=== PATIENT | female | born 1960 | race Caucasian/White ===

== ENCOUNTER 2018-12-23 00:25 | Inpatient (IN) ==
[2018-12-23] MEDS ORDERED: ZOFRAN IV ONE (01:09)
[2018-12-23] MEDS ORDERED: NS 1,000 ML IV ONE (01:09)
[2018-12-23 01:55] LABS: URINE SOURCE CLEAN CATCH
--- NOTE | 2018-12-23 02:04 | PROVIDER DOCUMENTATION ---
This chart was entered by Anni Martinez Scribe, acting as scribe for Nita Vicente MD. HPI-Abdominal Pain/GI Problem - General Chief Complaint: Abdominal Pain Stated Complaint: STOMACH PAIN Time Seen by Provider: 12/23/18 01:05 Source: patient Allergies/Adverse Reactions: Patient Allergies Allergy/AdvReac Type Severity Reaction Status Date / Time allergy mediation Allergy SWELLING Uncoded 08/15/18 16:11 Home Medications: Home Medication List Medication Instructions Recorded Confirmed Last Taken Type Escitalopram Oxalate [Lexapro] 20 mg PO HS 06/24/15 08/17/17 08/16/17 History Rivaroxaban [Xarelto] 10 mg PO QHS 06/24/15 08/17/17 08/12/17 History ATORVAstatin [Lipitor] 40 mg PO QHS 05/11/16 08/17/17 08/16/17 History Levothyroxine [Synthroid] 100 mcg PO DAILY 05/11/16 08/17/17 08/16/17 History Hydrocodone Bit/Acetaminophen 1 tab PO TID 08/02/16 08/17/17 08/16/17 History [Hydrocodon-Acetaminoph 7.5-325] Gabapentin 200 mg PO TID #0 08/05/16 08/17/17 08/16/17 Rx Ropinirole HCl [Ropinirole ER] 4 mg PO HS 02/16/17 08/17/17 08/16/17 History Ferrous Sulfate 325 mg PO DAILY 03/22/17 08/17/17 08/16/17 History Furosemide [Lasix] 40 mg PO DAILY 03/22/17 08/17/17 08/16/17 History Omeprazole 40 mg PO DAILY 03/22/17 08/17/17 08/16/17 History Spironolactone 0.5 tab PO DAILY 03/22/17 08/17/17 08/16/17 History LISINOpril [Prinivil] 20 mg PO DAILY 08/14/17 08/17/17 08/16/17 History Metformin [Glucophage] 850 mg PO DAILY 08/14/17 08/17/17 08/16/17 History Oxycodone HCl/Acetaminophen 1 each PO Q6H PRN PRN #40 tablet 08/17/17 Unknown Rx [Percocet 5-325 mg Tablet] Ondansetron [Zofran] 4 mg PO Q6H PRN PRN #14 tab 09/08/17 Unknown Rx Sulfamethoxazole/Trimethoprim 1 ea PO BID #14 tab 09/08/17 Unknown Rx [Bactrim Ds Tablet] Tramadol [Ultram] 50 mg PO Q6H PRN PRN #20 tab 09/08/17 Unknown Rx - History of Present Illness-ABD Nature of Presenting Problems: 58yof presents to ED cc abdominal pain around belly button for last 4 hrs and dysuria. Pt denies N,V,C. Pt is asking for something for sleep upon exam. Abdominal Pain Onset Location: reports: periumbilical Pain Radiation: reports: no radiation Quality of Pain: reports: aching Severity in ED: reports: mild Onset/Duration: reports: 4-6 hours ago Timing: reports: still present Activities at Onset: reports: light activity Modifying Factors: improves with: nothing Review of Systems - Adult - REVIEW OF SYSTEMS - ADULT Constitutional: reports: see HPI. denies: chills, fever, fatique Eyes: reports: no symptoms reported Ears, Nose, Mouth & Throat: reports: no symptoms reported Cardiovascular: reports: no symptoms reported Respiratory: reports: no symptoms reported Gastrointestinal: reports: see HPI, abdominal pain. denies: constipation, nausea, vomiting Genitourinary: reports: see HPI, dysuria Musculoskeletal: reports: no symptoms reported Integumentary: reports: no symptoms reported Neurological: reports: no symptoms reported Psychiatric: reports: no symptoms reported Endocrine: reports: no symptoms reported Hematologic/Lymphatic: reports: no symptoms reported Allergic/Immunologic: reports: no symptoms reported All Other Systems: Reviewed and Negative Past History - Adult - PAST MEDICAL HISTORY-ADULT Review of Records: reports: Nursing Assessment Review, Medications Reviewed, Social history reviewed & non-contributory. Major Childhood Illnesses: reports: denies history Cardiovascular: reports: blood clots, CHF, HTN, hyperlipidemia Respiratory: reports: COPD, sleep apnea Gastrointestinal: denies: cancer, Crohn's, colitis, diverticulosis, GERD, GI bleed, hepatitis Obstetrical/Gynecological: reports: denies history Genitourinary: reports: ESRD, kidney disease. denies: kidney stones, chronic UTI's Musculoskeletal: reports: other (restless leg syndrome) Neurological: denies: CVA, stroke deficits, dementia, spinal cord/brain injury Psychiatric: reports: depression Endocrine/Immune: reports: Diabetes (borderline), thyroid disorder Other Conditions: reports: denies history - PRIOR SURGERIES/PROCEDURES Surgical/Procedure History: reports: hysterectomy, hernia repair, other - IMMUNIZATION STATUS Childhood Immunizations: See Nurse Assessment Flu Vaccine: See Nurse Assessment - FAMILY HISTORY Family History: reviewed, not pertinent Physical Exam-General - PHYSICAL EXAM-ADULT Initial Vital Signs Reviewed: Yes - CONSTITUTIONAL General Appearance: appears well, alert, no apparent distress. negative: anxious, combative - EYES Eyes: PERRL/EOMI - RESPIRATORY Respiratory: chest non-tender - CARDIOVASCULAR Cardiovascular: normal peripheral pulses - GASTROINTESTINAL (ABDOMEN) Abdominal Exam: normal bowel sounds, tenderness (periumbilical) - SKIN Integumentary: normal color - PSYCHIATRIC Psych/Mental Status: normal mood/affect, normal thought content, normal thought process, oriented x 3. negative: disoriented x 3, anxious, disheveled, depr essed affect Progress - PLAN OF CARE/RESULTS Progress/Plan/Lab Results: Vital Signs - 8 hr 12/23/18 00:30 Temperature 97.3 F L Pulse Rate 67 Respiratory Rate 16 Blood Pressure 106/71 O2 Sat by Pulse Oximetry 96 Laboratory Results - last 24 hr 12/23/18 01:27 Urine Source CLEAN CATCH Orders Category Date Time Status AMYLASE [CHEM] Stat Lab 12/23/18 01:35 Received CBC WITH ELECTRONIC DIFF [HEME] Stat Lab 12/23/18 01:27 Results COMPREHENSIVE METABOLIC PANEL [CHEM] Stat Lab 12/23/18 01:35 Received LIPASE [CHEM] Stat Lab 12/23/18 01:35 Received URINALYSIS W/POSS RFLX CULT [URINALYSIS] Stat Lab 12/23/18 01:27 Results URINE DRUG SCREEN Stat Lab 12/23/18 01:27 Received 0.9% Sodium Chloride Inj [Ns] 1,000 ml Med 12/23/18 01:09 Active IV 999 mls/hr Ondansetron [Zofran] Med 12/23/18 01:09 Discontinued 4 mg IV NOW ONE CT showing SBO, likely due to adhesions. Spoke to Dr Kc, endodontics dentist for general surgery who stated to admit to hospitalist and he will be consulted. UA weakly + but given rocephin in the ED. UDS + for opiates could try relistor to see if this relieves some contents. Recommends no NGT if patient is not vomiting. Pt is not vomiting so will hold off NGT at this time. Spoke to Dr Langford who accepted pt for admission. Further orders to be placed by their team. Result Diagrams: 12/23/18 01:27 12/23/18 01:27 - CT/MRI 1 CT Study: Abdomen Impression: Abnormal (Smaal bowel obstruction, right renal lesion benign vs malignant.) - CONSULTS/PCP/HOSPITALIST Notification Time Discussed: 03:28 (admit to hosp and he will see as consult, no NGT if patient is not vomiting) Reason/Comments: Dr Kc Consult Disposition: Admit #2 Consult: Dr Langford Time Discussed: 03:34 Consult Disposition: Admit Departure - Departure Date of Disposition Decision: 12/23/18 Time of Disposition Decision: 03:34 DIAGNOSIS: Small bowel obstruction, Renal lesion UTI (urinary tract infection) Qualifiers: Hematuria presence: without hematuria Disposition: ADMITTED INPATIENT 09 Certified Medical Emergency: Emergent Condition: Stable Additional Freetext Instructions: ED Follow Up Instructions: You have been treated by a care provider in the Emergency Department. These i nstructions are being provided to you so you can have an understanding of how to care for yourself upon discharge. Upon discharge from the Emergency Department, you are responsible for making arrangements for follow-up care by a physician of your choice. Take all prescribed medications as directed. Return to the Emergency Department immediately for any new or worsening symptoms. You may call the Physician Referral phone number at [phone] to obtain a list of Physicians who are taking new patients. Referrals and Follow-Ups: Jelani Zee Jr, MD [Primary Care Provider] - - Critical Care Note This patient required my direct & personal management of CC.: No Attestation - Physician/ NADEEM Attestation Patient care was provided by Advanced Practice Provider:: No The physician spent face to face time with patient:: Yes Advanced Practice Provider documentation review:: Supervising physician onsite and consulted in the evaluation and care of this patient. The physician did have a face to face encounter with the patient. This chart was documented by the indicated scribe, (Anni Martinez Scribe) and accurately reflects the services I performed and decisions made by me, Nita Vicente MD, as attested by the provider's signature.
[2018-12-23 02:09] LABS: HEMOGLOBIN 11.5 g/dL (12.0-16.0); RBC 3.96 XMIL (4.2-5.4); WBC 7.43 X1000 (4.8-10.8)
[2018-12-23 02:10] LABS: BASO# 0.03 X1000 (0.0-0.2); BASO% 0.4 % (0.0-0.8); EOS# 0.28 X1000 (0.0-0.7); EOS% 3.8 % (0.0-10.0); HEMATOCRIT 37.3 % (37.0-47.0); LYMPH# 1.87 X1000 (1.2-3.4); LYMPH% 25.2 % (20.5-51.1); MCHC 30.8 g/dL (33-37); MCV 94.2 FL (81-99); MONO# 0.51 X1000 (0.11-0.59); MONO% 6.9 % (1.7-9.3); MPV 10.4 FL (7.4-10.4); NEUT# 4.74 X1000 (1.4-6.5); NEUT% 63.7 % (42.2-75.2); PLT 211 X1000 (130-400); RDW 14.8 % (11.5-14.5)
[2018-12-23 02:12] LABS: BILIRUBIN URINE NEGATIVE (NEGATIVE); BLOOD URINE NEGATIVE (NEGATIVE); COLOR YELLOW; GLUCOSE URINE NEGATIVE (NEGATIVE); KETONE URINE NEGATIVE (NEGATIVE); LEUKOCYTES URINE SMALL (NEGATIVE); NITRITE URINE NEGATIVE (NEGATIVE); PH URINE 5.5; PROTEIN URINE NEGATIVE (NEGATIVE); SP GRAVITY URINE 1.022; TURBIDITY URINE CLEAR (CLEAR); UROBILINOGEN URINE 2 mg/dL (NORMAL)
[2018-12-23 02:13] LABS: UR EPITHELIAL CELLS <10 /HPF (<10); URINE BACTERIA 1+ /HPF; URINE RBC <10 /HPF (<10); URINE WBC <10 /HPF (<10)
[2018-12-23 02:27] LABS: ALB/GLOB RATIO 1.7; ALBUMIN 4.3 g/dL (3.5-5.0); CALCIUM 9.3 mg/dL (8.8-10.2); CREATININE 2.6 mg/dL (0.5-0.9); POTASSIUM 5.3 mmol/L (3.5-5.1); TOTAL BILIRUBIN 0.33 mg/dL (0.20-1.00); TOTAL PROTEIN 6.9 g/dL (6.3-8.3)
[2018-12-23 02:48] LABS: UR AMPHETAMINES QUAL NONE DETECTED (NONE DETECT); UR BARBITUATES QUAL NONE DETECTED (NONE DETECT); UR BENZODIAZEPIN QUAL NONE DETECTED (NONE DETECT); UR CANNABINOIDS QUAL NONE DETECTED (NONE DETECT); UR COCAINE QUAL NONE DETECTED (NONE DETECT); UR METHADONE QUAL NONE DETECTED (NONE DETECT); UR OPIATES QUAL PRESUMPTIVE POSITIVE (NONE DETECT); UR OXYCODONE QUAL NONE DETECTED (NONE DETECT); UR PCP QUAL NONE DETECTED (NONE DETECT)
[2018-12-23] MEDS ORDERED: ROCEPHIN 1 GM in NS 50 ML IV ONE (03:01)
--- NOTE | 2018-12-23 05:15 | HISTORY AND PHYSICAL ---
PRIMARY CARE PHYSICIAN: Dr. Zee. CHIEF COMPLAINT: Abdominal pain x1 day. HISTORY OF PRESENTING ILLNESS: A 58-year-old female with a history of COPD, diabetes mellitus type 2, congestive heart failure, diastolic dysfunction, chronic kidney disease and DVT, who had presented to emergency department with 1-day history of having abdominal pain. She described it as cramping and states that it was not improving. The patient was evaluated in the emergency department. She had imaging done which did show a small bowel obstruction. Due to her presenting symptoms, it was thought that she would need admission for further management. At the time of my examination, patient denied any headache, fever, chills, hemoptysis, melena, weight changes, but complained of abdominal pain and being nauseated. PAST MEDICAL HISTORY: Includes COPD, diabetes mellitus type 2, obstructive sleep apnea, CHF, diastolic dysfunction, chronic kidney disease stage 3, restless legs syndrome and DVT. PAST SURGICAL HISTORY: Hysterectomy, abdominal hernia repair, left detached retinal repair, breast implants. ALLERGIES: [id number] allergy medicines. CURRENT MEDICATIONS: Lipitor 40 mg p.o. at bedtime, Lexapro 20 mg p.o. at bedtime, ferrous sulfate 325 mg p.o. daily, Lasix 40 mg p.o. daily, gabapentin 200 mg p.o. b.i.d., [place] 7.5 one p.o. t.i.d., levothyroxine 100 mcg p.o. daily, lisinopril 20 mg p.o. daily, metformin 850 mg p.o. daily, Xarelto 10 mg p.o. at bedtime, Requip 4 mg p.o. at bedtime. SOCIAL HISTORY: No history of smoking, alcohol or illicit drug use. FAMILY HISTORY: Positive for coronary artery disease in his father. REVIEW OF SYSTEMS: Fourteen point review of systems as listed in HPI. Other systems negative. PHYSICAL EXAMINATION: GENERAL: Cooperative, friendly, obese female. She is resting comfortably now. VITAL SIGNS: Temperature 97.2 degrees, pulse 67, respirations 16, blood pressure 106/71. HEENT: Atraumatic, normocephalic. Extraocular movements intact. PERRLA. NECK: No masses. CHEST: Clear to auscultation. CARDIOVASCULAR: Regular rate and rhythm. ABDOMEN: Soft. Diffuse tenderness. EXTREMITIES: No edema. NEUROLOGIC: She is awake, alert, oriented x3. GENITOURINARY: No bladder distention. SKIN: Warm. LABORATORIES AND STUDIES: WBC 7.43, hemoglobin 11.5, hematocrit 37.2, platelets 211,000. Sodium 145, potassium 5.3, chloride 108, CO2 is 26, BUN is 39, creatinine is 2.6, glucose 98. ASSESSMENT: A 58-year-old female with a history of chronic obstructive pulmonary disease, diabetes mellitus type 2, congestive heart failure, chronic kidney disease, who had presented to emergency department with a 1-day history of having abdominal pain. She was evaluated in the emergency department. She had imaging done which did show small bowel obstruction. Subsequently, she will require admission for further management. 1. Suspected small-bowel obstruction. 2. Diabetes mellitus type 2. 3. Chronic obstructive pulmonary disease. 4. Chronic kidney disease. 5. History of deep venous thrombosis. PLAN: 1. We will admit patient to medical floor with telemetry. 2. We will keep patient NPO. Continue with supportive treatment with IV fluids, antiemetics, pain control. 3. We will consult General Surgery. 4. Monitor blood glucose and put patient on sliding scale insulin regimen. 5. Continue with DuoNebs p.r.n. 6. Monitor renal function. 7. We will hold anticoagulation for now due to possibility of any surgical intervention. 8. The patient, however, had already taken a dose of Xarelto and this will suffice for DVT prophylaxis for now. 9. We will continue to follow, and reassess and make further recommendations based on patient's clinical course. cc: Caleb Langford MD
[2018-12-23] MEDS: ZOFRAN IV PRN ×2 (05:49→08:35)
[2018-12-23] MEDS: MORPHINE IV PRN ×3 (05:50→20:04)
[2018-12-23] MEDS: NS 1,000 ML IV SCH ×3 (05:51→22:37)
[2018-12-23] MEDS: HUMULIN R SUBQ SCH ×4 (06:42→22:13)
--- NOTE | 2018-12-23 07:48 | Diag Imaging Result Doc PS360 ---
EXAM: CT ABDOMEN/PELVIS W/O CONTRAST 12/23/2018 HISTORY: abd pain TECHNIQUE: This exam was performed using automated exposure control, adjustment of mA or kV according to patient size, and/or use of iterative reconstruction technique. COMMENT: The current study is compared with 03/22/2017. There is some platelike opacity and mild pleural thickening in the left base. The nodular opacity present in the left lower lobe at the time the previous study is no longer identifiable. There are granulomata in the liver and spleen. There is no evidence of nephrolithiasis or hydronephrosis. There is an exophytic nodular lesion arising from the lower pole of the left kidney measuring up to 14 mm in diameter. This appears to have a CT density of over 17 Hounsfield units. The possibility of a solid lesion cannot be excluded and further evaluation with ultrasonography is recommended. There are no apparent gallstones. There is what appears to be a lipoma in the gastric antrum. This was also demonstrated at the time the previous study. It measures up to 2.2 cm. There are some prominent mesenteric nodes on the left associated with some increase in density of the mesenteric fat consistent with mesenteric panniculitis. This appears slightly worse than on the previous study. There is a vena cava filter. Some of the struts of the filter appear to be outside of the lumen of the inferior vena cava. This has not changed since the previous study. There is a mesh in the anterior abdominal wall. There is some stool throughout the colon without evidence of dilatation. There are some distended loops of small bowel seen anteriorly adjacent to the mesh one of which appears to contain fecalized contents. The possibility of adhesions and stricture in this location cannot be excluded. There is minimal free fluid in the pelvis. There has been hysterectomy. The urinary bladder is not distended. There is no evidence of ureterolithiasis. There are multiple retroperitoneal surgical clips over the upper pelvis. There is a small bone island in the inferior pubic ramus on the right this was also present at the time the previous study. There is a bone island in the left and right femoral heads. There are sclerotic lesions in the medial iliac bone on the left which have not changed. There are hemangiomata in L4 and L5. Overall the regional skeleton has not changed significantly. IMPRESSION: Partial small bowel obstruction. Mild mesenteric panniculitis. New left renal exophytic lesion. Gastric lipoma. Other nonacute findings as described above. Electronically signed by Jay Amador 12/23/2018 7:46 AM
[2018-12-23] MEDS: DUONEB (A & A) INH PRN ×2 (08:50→16:30)
--- NOTE | 2018-12-23 10:47 | GENERAL SURGERY CONSULTATION ---
DATE: 12/23/2018 SUBJECTIVE: Ms. Darden was admitted during the night with a 1-day history of abdominal pain. Today, she says her abdominal pain is better. She has had a little nausea but no vomiting. She said she has had no flatus or bowel movement in the past 24 hours that she recognize. Her CT scan was done in the emergency room and there was some dilatation of her small bowel. So it was read as a partial small bowel obstruction. She has some mesh that apparently was [place] [address] Hodge in [place]. PAST MEDICAL HISTORY: Her other medical problems include 1. COPD. 2. Type 2 diabetes. 3. Obstructive sleep apnea. 4. Congestive heart failure. 5. Diastolic dysfunction. 6. Chronic kidney disease, stage III. 7. Restless legs syndrome. 8. History of DVT. PAST SURGICAL HISTORY: Previous surgery includes a 1. Hysterectomy. 2. Abdominal ventral hernia repair. 3. Detached retina repair. 4. Breast implants. MEDICATIONS: Include 1. Lipitor. 2. Lexapro. 3. Iron sulfate. 4. Lasix. 5. Gabapentin. 6. [place]. 7. Levothyroxine. 8. Lisinopril. 9. Metformin. 10. Xarelto. 11. Requip. ALLERGIES: She says she is allergic to some [id number] medication. SOCIAL HISTORY: She denies smoking, alcohol or drug use. FAMILY HISTORY: Pertinent for coronary disease. REVIEW OF SYSTEMS: As noted above. PHYSICAL EXAMINATION: Vital Signs: She is afebrile. Heart rate 57, respiratory 20, blood pressure 125/64. Neck: No cervical adenopathy. Lungs: Bilateral breath sounds. Heart: Regular rate and rhythm. Abdomen: Soft. I do not really elicit any significant tenderness. No hernias are palpated. Extremities: No peripheral edema. Neurologic: She is awake and alert. DIAGNOSTICS/LABORATORY DATA: White count is normal. Chemistry shows a potassium of 5.3, BUN 39, creatinine 2.6. ASSESSMENT: Abdominal pain, uncertain etiology. We will plan to start her on liquids to see how she does and do serial abdominal exams. cc: Rajeev Kc MD
[2018-12-23] MEDS: NEURONTIN PO SCH ×2 (12:59→18:46)
[2018-12-23] MEDS: LEXAPRO PO SCH (20:03)
[2018-12-23] MEDS: REQUIP PO SCH (20:04)
[2018-12-23] MEDS ORDERED: ROPINIROLE HCL PO SCH (21:00)
[2018-12-24] MEDS: ZOFRAN IV PRN ×3 (03:51→20:48)
[2018-12-24] MEDS: MORPHINE IV PRN ×3 (03:51→20:48)
[2018-12-24 05:57] LABS: BASO# 0.02 X1000 (0.0-0.2); BASO% 0.4 % (0.0-0.8); EOS# 0.16 X1000 (0.0-0.7); EOS% 3.5 % (0.0-10.0); HEMATOCRIT 35.7 % (37.0-47.0); LYMPH# 1.07 X1000 (1.2-3.4); LYMPH% 23.3 % (20.5-51.1); MCH 29.6 PG (27-31); MCHC 30.8 g/dL (33-37); MCV 96.2 FL (81-99); MONO# 0.31 X1000 (0.11-0.59); MONO% 6.7 % (1.7-9.3); NEUT# 3.04 X1000 (1.4-6.5); NEUT% 66.1 % (42.2-75.2); PLT 159 X1000 (130-400); RBC 3.71 XMIL (4.2-5.4); RDW 14.4 % (11.5-14.5)
--- NOTE | 2018-12-24 06:10 | Diag Imaging Result Doc PS360 ---
EXAM: CHEST-PORTABLE HISTORY: dyspnea TECHNIQUE: Portable chest single view COMPARISON: 08/15/2018 FINDINGS: The lungs are well expanded. The heart is enlarged. The vessels are distended. There are no infiltrates. No effusion identified. IMPRESSION: Cardiomegaly with pulmonary edema. Electronically signed by Kirill Betancourt 12/24/2018 6:07 AM
[2018-12-24 06:12] LABS: CALCIUM 9.1 mg/dL (8.8-10.2); CREATININE 1.7 mg/dL (0.5-0.9); POTASSIUM 5.1 mmol/L (3.5-5.1)
[2018-12-24] MEDS: HUMULIN R SUBQ SCH ×4 (06:49→21:32)
[2018-12-24] MEDS: SYNTHROID PO SCH (07:02)
[2018-12-24] MEDS: NEURONTIN PO SCH ×3 (08:32→16:52)
[2018-12-24] MEDS: REQUIP PO SCH ×2 (08:32→20:49)
[2018-12-24] MEDS: LASIX PO SCH (10:55)
--- NOTE | 2018-12-24 12:01 | GENERAL SURGERY PROGRESS NOTE ---
DATE: 12/24/2018 SUBJECTIVE: She is tolerating her clear liquid satisfactory. She denies any flatus as of yet. OBJECTIVE: Her abdomen is soft and nontender. Hemodynamics were good. PLAN: The plan will be to advance her to full liquids today, possibly go to solids tomorrow. cc: Rajeev Kc MD
[2018-12-24] MEDS: DUONEB (A & A) INH PRN (16:54)
--- NOTE | 2018-12-24 17:36 | PROGRESS NOTE ---
DATE: 12/24/2018 SUBJECTIVE: She is a patient of Dr. Jelani Zee. A 58-year-old who came in with abdominal pain for 24 hours. History of COPD, diabetes mellitus type 2, congestive heart failure, diastolic dysfunction, chronic kidney disease, and DVT. Had presented to the emergency room with 1-day history of having abdominal pain described as cramping and states not improving. Evaluated the emergency room. Imaging done showed small bowel obstruction due to presenting symptoms, thought she would need admission. PAST MEDICAL HISTORY: Includes 1. COPD. 2. Diabetes mellitus type 2. 3. Obstructive sleep apnea. 4. Congestive heart failure. 5. Diastolic dysfunction. 6. Chronic kidney disease stage 3. 7. Restless legs syndrome. 8. DVT. PAST SURGICAL HISTORY: 1. Status post hysterectomy. 2. Abdominal hernia repair. 3. Left detached retina repair. 4. Breast implants. OBJECTIVE: General: Suspected small-bowel obstruction. She states she has was feeling a little better today but having a little more abdominal pain down low. She is on full liquid diet. Vital Signs: Remains afebrile. Temperature 99.6 degrees, pulse 54, respirations 20, blood pressure 144/81. HEENT: Pupils are equal and round. Lungs: Clear in all lung molina. Cardiovascular: Regular rhythm and rate without murmur or S3. Urine output was 4000 mL. ASSESSMENT AND PLAN: Small bowel obstruction. We will advance her to full liquids. She is having a little bit of pain. LABORATORY DATA: Today, white count 4600, hematocrit 35, platelet count 159,000. Electrolytes: Sodium 145, potassium 5.4, chloride 112, BUN 27, creatinine 1.7. Creatinine has come down from 2.6 nicely. Her abdominal pelvic CT scan showed partial small bowel obstruction, mesenteric panniculitis. She has a new left renal exophytic lesion and gastric lipoma. She reports that she has been told she had venous insufficiency and that she should pursue venous ablation and it may be that we can get an ultrasound while she is here. I do not know. Continue current orders. Right now, she is on Lexapro 20 mg a day, getting DuoNeb, Lasix 40 mg p.o. daily, Neurontin 200 mg p.o. t.i.d., Synthroid 100 mcg daily, morphine 2 mg IV q.6 hours p.r.n., Requip 2 mg b.i.d., ceftriaxone, she was given 1 dose on admission. cc: Ang Dennis MD
[2018-12-24] MEDS: LEXAPRO PO SCH (20:49)
[2018-12-25] MEDS: MORPHINE IV PRN ×3 (03:17→18:31)
[2018-12-25] MEDS: ZOFRAN IV PRN ×3 (03:21→18:31)
[2018-12-25 06:07] LABS: BASO# 0.02 X1000 (0.0-0.2); BASO% 0.4 % (0.0-0.8); EOS# 0.19 X1000 (0.0-0.7); EOS% 4.3 % (0.0-10.0); HEMOGLOBIN 10.1 g/dL (12.0-16.0); LYMPH# 1.32 X1000 (1.2-3.4); LYMPH% 29.5 % (20.5-51.1); MCH 29.4 PG (27-31); MCHC 30.6 g/dL (33-37); MCV 96.2 FL (81-99); MONO# 0.39 X1000 (0.11-0.59); MONO% 8.7 % (1.7-9.3); MPV 10.3 FL (7.4-10.4); NEUT# 2.55 X1000 (1.4-6.5); NEUT% 57.1 % (42.2-75.2); PLT 149 X1000 (130-400); RBC 3.43 XMIL (4.2-5.4); RDW 14.1 % (11.5-14.5); WBC 4.47 X1000 (4.8-10.8)
[2018-12-25] MEDS: HUMULIN R SUBQ SCH ×4 (06:46→22:43)
[2018-12-25] MEDS: SYNTHROID PO SCH (06:56)
[2018-12-25 07:18] LABS: CALCIUM 8.6 mg/dL (8.8-10.2); POTASSIUM 4.6 mmol/L (3.5-5.1)
--- NOTE | 2018-12-25 08:48 | Diag Imaging Result Doc PS360 ---
EXAM: ABDOMEN FLAT/UPRIGHT HISTORY: sbo TECHNIQUE: Flat and upright, two views COMPARISON: 09/08/2017 FINDINGS: There is stool throughout the colon. The bowel loops are not dilated. There are surgical coils and clips overlying the lower abdomen and pelvis. An inferior vena caval filter overlies the right side of the elbow three vertebra. Mild scoliosis with degenerative bone changes. No organomegaly. There are multiple pelvic phleboliths. IMPRESSION: Constipation Electronically signed by Kirill Betancourt 12/25/2018 8:45 AM
--- NOTE | 2018-12-25 09:50 | PROGRESS NOTE ---
DATE: 12/25/2018 SUBJECTIVE: Ms Darden was sitting up on the side of her bed. She said she has been passing some gas. She would like more solid food. I will try and advance her to a soft gastrointestinal diet. She had mentioned that she had been told she has chronic venous insufficiency and would like to get her leg studies so I will get bilateral noninvasive venous studies. OBJECTIVE: Vital Signs: On her exam today temperature 98.2 degrees, pulse 57, respirations 20, blood pressure 143/86. HEENT: Pupils are equal round. Lungs: Clear in all lung molina. Cardiovascular: Regular rhythm and rate without murmur or S3. Abdomen: Soft. Skin: Warm and dry. Urine output: 2800 mL. DIAGNOSTIC STUDIES: Blood sugar 77, 231, and 80. Abdominal x-ray done this morning showed constipation. There are surgical coils and clips overlying the lower abdomen and pelvis. An inferior vena cava filter overlies the right side of the elbow 3 vertebrae, mild sclerosis, and degenerative bone changes. No organomegaly. ASSESSMENT AND PLAN: 1. Small bowel obstruction. Seems to be improving. She wants to advance to a soft diet. She is passing some gas. No bowel movement at this point. 2. Increase activity. Physical therapy. 3. We will pursue noninvasive venous studies to look at her lower extremities. REVIEW OF HER ORDERS: She is on Lasix 40 mg a day. Neurontin 200 mg t.i.d. Synthroid 100 mcg p.o. daily. Requip 2 mg p.o. b.i.d. cc: Ang Dennis MD MTDD
[2018-12-25] MEDS: LASIX PO SCH (10:11)
[2018-12-25] MEDS: NEURONTIN PO SCH ×3 (10:11→18:30)
[2018-12-25] MEDS: REQUIP PO SCH ×2 (10:12→21:34)
--- NOTE | 2018-12-25 14:46 | GENERAL SURGERY PROGRESS NOTE ---
DATE: 12/25/2018 Ms Ray is improved. Her abdomen is not causing pain as it was. She has tolerated the soft food given to her this morning by Dr. Dennis. I think she is resolving her SBO and would continue to advance her diet as she can tolerate it. cc: Rajeev Kc MD
[2018-12-25] MEDS: LEXAPRO PO SCH (21:34)
[2018-12-26] MEDS: MORPHINE IV PRN ×4 (01:01→21:19)
[2018-12-26] MEDS: SYNTHROID PO SCH (06:29)
[2018-12-26] MEDS: HUMULIN R SUBQ SCH ×4 (06:45→21:20)
[2018-12-26] MEDS: NEURONTIN PO SCH ×3 (09:16→21:13)
[2018-12-26] MEDS: LASIX PO SCH (09:16)
[2018-12-26] MEDS ORDERED: FIORICET PO PRN (09:58)
--- NOTE | 2018-12-26 10:18 | PROGRESS NOTE ---
DATE: 12/26/2018 SUBJECTIVE: Ms. Darden still has not had a bowel movement. She is passing some flatus, and she is not uncomfortable, except for complains of a headache. OBJECTIVE: Vital Signs: Temperature 98.4 degrees, pulse 67, respirations 20, blood pressure 122/68. Eyes: Pupils are equal and round. Lungs: Clear in all lung molina. Cardiovascular exam: Regular rhythm and rate without murmur or S3. Abdomen: Soft. Skin: Warm and dry. Blood sugar 80, 135 and 89. ASSESSMENT AND PLAN: 1. Abdomen is not causing her any pain. Tolerating soft foods. Resolving her small bowel obstruction. Continue to advance diet as tolerated. She is talking about wanting to go home. 2. Headache. I am going to try some Fioricet, see if this will help. 3. Continue physical therapy. 4. Chronic venous insufficiency. cc: Ang Dennis MD
[2018-12-26] MEDS: REQUIP PO SCH ×2 (10:23→21:14)
[2018-12-26] MEDS: DUONEB (A & A) INH PRN (11:56)
[2018-12-26] MEDS: ZOFRAN IV PRN ×2 (12:39→21:19)
[2018-12-26] MEDS: MELATONIN PO SCH (21:13)
[2018-12-26] MEDS: LEXAPRO PO SCH (21:13)
[2018-12-27] MEDS: SYNTHROID PO SCH (06:01)
[2018-12-27] MEDS: MORPHINE IV PRN ×3 (06:01→21:32)
[2018-12-27] MEDS: ZOFRAN IV PRN ×3 (06:01→21:31)
--- NOTE | 2018-12-27 07:34 | PROGRESS NOTE ---
DATE: 12/27/2018 Ms. Darden had a pretty good night. She still has not had a bowel movement. She is passing gas and passing flatus to the rectum. OBJECTIVE: Temperature 97.6 degrees, pulse 70, respirations 17, blood pressure 105/56. Pupils are equal and round. Lungs are clear in all lung molina. Cardiovascular exam, regular rate without murmur or S3. Abdomen is soft. Skin is warm and dry. Urine output is 600 mL. Blood sugar 89, 142, 104. ASSESSMENT AND PLAN: 1. Abdomen is soft, tolerating soft food, so advance her to a full diet, regular diet. I think her small bowel obstruction seems to be improving. Hopefully will have a bowel movement soon. 2. Complains of left foot pain, would like an x-ray. 3. Headache. I think is improved. We tried some Fioricet. 4. Chronic venous insufficiency. Aware. So hopefully she can go home soon. Will advance her diet. cc: Ang Dennis MD
[2018-12-27] MEDS: HUMULIN R SUBQ SCH ×4 (08:10→21:32)
[2018-12-27] MEDS: LASIX PO SCH (08:56)
[2018-12-27] MEDS: NEURONTIN PO SCH ×3 (08:56→21:31)
--- NOTE | 2018-12-27 10:30 | Diag Imaging Result Doc PS360 ---
EXAM: FOOT COMPLETE LEFT HISTORY: pain TECHNIQUE: Left foot, three views COMPARISON: None. FINDINGS: The bones are osteopenic. Inferior calcaneal bone spur. No fracture. No dislocation. No bone erosions. IMPRESSION: No acute abnormality. If there is clinical suspicion for osteomyelitis an MRI is recommended. Electronically signed by Kirill Betancourt 12/27/2018 10:27 AM
[2018-12-27] MEDS: REQUIP PO SCH ×2 (10:35→21:32)
[2018-12-27] MEDS: MELATONIN PO SCH (21:31)
[2018-12-27] MEDS: LEXAPRO PO SCH (21:31)
[2018-12-27] MEDS: DUONEB (A & A) INH PRN (22:19)
[2018-12-28] MEDS: SYNTHROID PO SCH ×2 (05:58→06:00)
[2018-12-28] MEDS: ZOFRAN IV PRN ×2 (05:58→14:42)
[2018-12-28] MEDS: MORPHINE IV PRN ×2 (05:58→14:42)
[2018-12-28] MEDS: HUMULIN R SUBQ SCH ×3 (07:29→16:00)
[2018-12-28] MEDS: DUONEB (A & A) INH PRN (07:33)
[2018-12-28] MEDS: LASIX PO SCH (09:29)
[2018-12-28] MEDS: NEURONTIN PO SCH ×2 (09:29→14:00)
[2018-12-28] MEDS: REQUIP PO SCH (09:29)
[2018-12-28] MEDS ORDERED: GOLYTELY PO ONE (10:21)
--- NOTE | 2018-12-28 10:40 | PROGRESS NOTE ---
DATE: 12/28/2018 SUBJECTIVE: Ms. Darden has still not had a bowel movement. She is still passing gas. Her abdomen is a little uncomfortable. OBJECTIVE: Temperature 98.1 degrees, pulse 59, respirations 20, blood pressure 119/67. Pupils are equal and round. No distended neck veins. Lungs are clear in all lung molina. Cardiovascular with regular rate without murmur or S3. Abdomen is soft. Skin is warm and dry. I am going to check a flat and upright and try some Colyte and see if maybe taking 50 mL an hours we will get some results. Urine output is 1100 mL. Blood sugar 104, 174, 120. ASSESSMENT AND PLAN: 1. Small bowel obstruction which seems to be improving. She is eating. She is passing gas. She has not had a bowel. We will try some Colyte and see if it will help. 2. Left foot pain. We checked an x-ray. No sign of bony deformity. No acute abnormality. Clinical suspicion for osteomyelitis. 3. Headache, which is improved. 4. Continue to encourage ambulation with physical therapy. On review of her orders right now, I do not see any change. We will check an abdominal flat and upright today. cc: Ang Dennsi MD
--- NOTE | 2018-12-28 11:41 | Diag Imaging Result Doc PS360 ---
EXAM: KUB ABDOMEN INDICATION: constipation TECHNIQUE: 2 views COMPARISON: 12/25/2018 FINDINGS: There is a large amount of stool in the colon suggesting moderate to severe constipation. It is probably slightly worse than the previous study. There is no obstructive bowel pattern. There is no evidence of large volume free abdominal gas. The abdomen is stable, otherwise. IMPRESSION: Suggestion of moderate to severe constipation. Electronically signed by Jermaine Gomez 12/28/2018 11:39 AM
[2018-12-28 15:57] VITALS: BP 116/58
--- NOTE | 2018-12-28 16:55 | DISCHARGE SUMMARY ---
ADMISSION DATE: 12/23/2018 DISCHARGE DATE: 12/28/2018 PRIMARY CARE PHYSICIAN: She is a patient of Dr. Jelani Zee. HISTORY OF PRESENT ILLNESS: A 58-year-old presented with history of COPD, diabetes mellitus type 2, congestive heart failure, diastolic dysfunction, chronic kidney disease, and DVT. Had presented to the emergency department with a 1-day history of abdominal pain, described it as cramping, states it was not improving. Patient was evaluated in the emergency department. Imaging done, which showed small bowel obstruction. Due to her presenting symptoms, she was admitted. PAST MEDICAL HISTORY: Once again: 1. COPD. 2. Diabetes mellitus, type 2. 3. Obstructive sleep apnea. 4. Congestive heart failure. 5. Diastolic dysfunction. 6. Chronic kidney disease, stage 3. 7. Restless legs syndrome. 8. DVT. PAST SURGICAL HISTORY: 1. Hysterectomy. 2. Abdominal hernia repair. 3. Left detached retina repair. 4. Breast implants. HOSPITAL COURSE: So, admitted, given some fluids, and held n.p.o. Sugars were managed with patterned sugars and sliding scale. She does have underlying COPD, but air and gas exchange seem to be good. Chronic kidney disease, aware. She was put on DVT prophylaxis. General Surgery was consulted, Dr. Rajeev Kc. Abdominal pain, uncertain etiology, so he did start her on some liquids which she tolerated, and we advanced that the soft diet and then eventually to a regular meal. She had abdominal x-ray on 12/25/2018, which showed some constipation. She has complaints of left foot pain. We did a left foot x-ray, no bony abnormality. A repeat abdominal exam x-ray today was again suggestive of severe constipation. I put her on some Colyte, and she was passing gas and had a bowel movement and was requesting to go home. She did have a headache, and the Fioricet seemed to help her with this. She is on Lexapro 20 mg a day. Lasix 40 mg daily. Neurontin 200 mg t.i.d. Synthroid 100 mcg daily. Melatonin 100 mg p.o. at bedtime. Requip 2 mg b.i.d. I am going to put her on some MiraLAX 17 g and have her take that twice a day. I will put her on Colace, as well, which is 100 mg twice a day and let her follow up with her primary care physician. DISCHARGE MEDICATIONS: Lipitor 40 mg at bedtime. Lexapro 20 mg at bedtime. Ferrous sulfate 325 mg a day. Lasix 40 mg a day. Gabapentin 200 mg t.i.d. Hydrocodone, she takes 7.5 mg t.i.d., want her to kind of hold back on that if she can. Prinivil 20 mg a day. Synthroid 100 mcg daily. Metformin 850 mg a day. Xarelto 10 mg a day. Requip or ropinirole 4 mg at bedtime. FOLLOW-UP: She will follow up with Dr. Jelani Zee. cc: Ang Dennis MD MTDGraciela
== END 2018-12-28 18:24 | disposition home or self-care (01) | DRG 389 ==
LOC: ED 00:25 → 4N 04:57 → SUATTDRO 04:57 → 4N 05:12
PROVIDERS: ATTEND Emergency Medicine

== ENCOUNTER 2019-06-27 17:17 | Inpatient (IN) ==
[2019-06-27] MEDS ORDERED: ASPIRIN PO ONE (17:26)
[2019-06-27 18:05] LABS: BASO# 0.02 X1000 (0.0-0.2); BASO% 0.3 % (0.0-0.8); EOS# 0.42 X1000 (0.0-0.7); EOS% 5.9 % (0.0-10.0); HEMATOCRIT 35.7 % (37.0-47.0); HEMOGLOBIN 10.7 g/dL (12.0-16.0); IMM GRAN# 0.02 X1000 (0.0-0.04); IMM GRAN% 0.3 % (0.0-0.5); LYMPH# 0.91 X1000 (1.2-3.4); LYMPH% 12.8 % (20.5-51.1); MCH 29.3 PG (27-31); MCV 97.8 FL (81-99); MONO# 0.52 X1000 (0.11-0.59); MONO% 7.3 % (1.7-9.3); MPV 10.4 FL (7.4-10.4); NEUT# 5.21 X1000 (1.4-6.5); NEUT% 73.4 % (42.2-75.2); PLT 199 X1000 (130-400); RBC 3.65 XMIL (4.2-5.4); RDW 13.4 % (11.5-14.5)
[2019-06-27 18:13] LABS: INR 1.02; PROTIME 13.6 Seconds (11.0-16.0)
[2019-06-27 18:21] LABS: ALB/GLOB RATIO 1.6; ALBUMIN 3.9 g/dL (3.5-5.0); CALCIUM 8.8 mg/dL (8.8-10.2); CREATININE 2.2 mg/dL (0.5-0.9); POTASSIUM 4.3 mmol/L (3.5-5.1); TOTAL BILIRUBIN 0.43 mg/dL (0.20-1.00); TOTAL PROTEIN 6.3 g/dL (6.3-8.3)
--- NOTE | 2019-06-27 18:21 | Diag Imaging Result Doc PS360 ---
EXAM: CHEST-2 VIEWS 06/27/2019 HISTORY: sob TECHNIQUE: PA and lateral chest COMMENT: There is atelectasis anteriorly in the lingula and right upper lobe. This is worse than on the previous study of 02/16/2019. IMPRESSION: Atelectasis versus pneumonia in both upper lobes. Electronically signed by Jay Amador 06/27/2019 6:18 PM
--- NOTE | 2019-06-27 18:51 | PROVIDER DOCUMENTATION ---
This chart was entered by Kathy Oviedo Scribe, acting as scribe for Yanira Arriola MD. HPI-General Adult - General Source: patient - History of Present Illness -Gen Adult Nature of Presenting Problems: pt is a 59 yr old female presenting with 1 day complaint of shortness of breath, cough, fever and sore throat. pt admits onset last night, family has bronchitis. Location of Pain/Injury: reports: none Quality of Pain: reports: none Onset/Duration: reports: last night Timing: reports: still present Context/Activities at Onset: reports: light activity Modifying Factors: improves with: nothing Associated Symptoms: reports: cough, EENT symptoms, fever/chills, shortness of breath. denies: headaches, muscle aches, sinus congestion/drainage, nausea, vomiting Similar Symptoms Previously?: No Recently seen or treated by another doctor?: No <Yanira Arriola - Last Filed: 06/27/19 18:50> <Nita Vicente - Last Filed: 06/27/19 20:45> - General Chief Complaint: Shortness of Breath Stated Complaint: FEMALE Time Seen by Provider: 06/27/19 17:42 Allergies/Adverse Reactions: Patient Allergies Allergy/AdvReac Type Severity Reaction Status Date / Time allergy mediation Allergy SWELLING Uncoded 06/27/19 17:26 Home Medications: Home Medication List Medication Instructions Recorded Confirmed Last Taken Type Escitalopram Oxalate [Lexapro] 20 mg PO HS 06/24/15 12/23/18 08/16/17 History Rivaroxaban [Xarelto] 10 mg PO QHS 06/24/15 12/23/18 08/12/17 History ATORVAstatin [Lipitor] 40 mg PO QHS 05/11/16 12/23/18 08/16/17 History Levothyroxine [Synthroid] 100 mcg PO DAILY 05/11/16 12/23/18 08/16/17 History Gabapentin 200 mg PO TID #0 08/05/16 12/23/18 08/16/17 Rx Ropinirole HCl [Ropinirole ER] 4 mg PO HS 02/16/17 12/23/18 08/16/17 History Ferrous Sulfate 325 mg PO DAILY 03/22/17 12/23/18 08/16/17 History Furosemide [Lasix] 40 mg PO DAILY 03/22/17 12/23/18 08/16/17 History LISINOpril [Prinivil] 20 mg PO DAILY 08/14/17 12/23/18 08/16/17 History Metformin [Glucophage] 850 mg PO DAILY 08/14/17 12/23/18 08/16/17 History Ondansetron [Zofran] 4 mg PO Q6H PRN PRN #14 tab 09/08/17 12/23/18 Unknown Rx Ropinirole [Requip] 2 mg PO BID tab 12/28/18 Unknown Rx Review of Systems - Adult - REVIEW OF SYSTEMS - ADULT Constitutional: reports: chills, fever, fatique Eyes: reports: no symptoms reported Ears, Nose, Mouth & Throat: reports: throat pain. denies: ear pain, sinus prob ashia Cardiovascular: denies: chest pain, palpitations, syncope Respiratory: reports: cough, shortness of breath Gastrointestinal: denies: abdominal pain, diarrhea, nausea, vomiting Genitourinary: reports: no symptoms reported Musculoskeletal: denies: back pain, joint pain, muscle aches, neck pain Integumentary: reports: no symptoms reported Neurological: denies: dizziness/vertigo, headache/migraines Psychiatric: reports: no symptoms reported Endocrine: reports: no symptoms reported Hematologic/Lymphatic: reports: no symptoms reported Allergic/Immunologic: reports: no symptoms reported All Other Systems: Reviewed and Negative <Yanira Arriola - Last Filed: 06/27/19 18:50> Past History - Adult - PAST MEDICAL HISTORY-ADULT Review of Records: reports: Old Records Reviewed, Nursing Assessment Review, Medications Reviewed, Social history reviewed & non-contributory. Major Childhood Illnesses: reports: denies history Cardiovascular: reports: blood clots, CHF, HTN, hyperlipidemia Respiratory: reports: COPD, sleep apnea Gastrointestinal: denies: cancer, Crohn's, colitis, diverticulosis, GERD, GI bleed, hepatitis Obstetrical/Gynecological: reports: denies history Genitourinary: reports: ESRD, kidney disease. denies: kidney stones, chronic UTI's Musculoskeletal: reports: other (restless leg syndrome) Neurological: denies: CVA, stroke deficits, dementia, spinal cord/brain injury Psychiatric: reports: depression Endocrine/Immune: reports: Diabetes (borderline), thyroid disorder Other Conditions: reports: denies history - PRIOR SURGERIES/PROCEDURES Surgical/Procedure History: reports: hysterectomy, hernia repair, other - IMMUNIZATION STATUS Childhood Immunizations: See Nurse Assessment Flu Vaccine: See Nurse Assessment - FAMILY HISTORY Family History: reviewed, not pertinent - SOCIAL HISTORY Smoking: denies Substance Use: denies Living Situation: family <Yanira Arriola - Last Filed: 06/27/19 18:50> Physical Exam-General - PHYSICAL EXAM-ADULT Initial Vital Signs Reviewed: Yes - CONSTITUTIONAL General Appearance: alert, no apparent distress, obese - EYES Eyes: PERRL/EOMI - HEAD, EARS, NOSE, MOUTH & THROAT HENMT: normocephalic/atraumatic, moist mucous membranes, normal ENT inspection - NECK Neck: non-tender, full range of motion, supple, normal inspection - RESPIRATORY Respiratory: lungs clear, normal breath sounds, no respiratory distress, no accessory muscle use, other (cough) - CARDIOVASCULAR Cardiovascular: normal peripheral pulses, regular rate, rhythm - GASTROINTESTINAL (ABDOMEN) Abdominal Exam: normal bowel sounds, non tender, soft - LYMPHATIC Lymphatic: no adenopathy - MUSCULOSKELETAL Back Exam: normal inspection, no CVA tenderness, no vertebral tenderness Extremity: normal range of motion, non-tender, normal gait, pedal edema (bilateral 1+) - SKIN Integumentary: normal turgor, warm/dry. negative: normal color (pale) - NEUROLOGIC Neurologic: grossly normal, no motor/sensory deficits - PSYCHIATRIC Psych/Mental Status: normal mood/affect <Yanira Arriola - Last Filed: 06/27/19 18:50> Progress - PLAN OF CARE/RESULTS Progress/Plan/Lab Results: Vital Signs - 8 hr 06/27/19 17:22 Temperature 100.9 F H Pulse Rate 64 Respiratory Rate 24 Blood Pressure 160/77 O2 Sat by Pulse Oximetry 98 06/27/19 17:29 Influenza Screen - Final Nasopharyngeal Laboratory Results - last 24 hr 06/27/19 06/27/19 17:44 17:44 WBC 7.10 RBC 3.65 L Hgb 10.7 L Hct 35.7 L MCV 97.8 MCH 29.3 MCHC 30.0 L RDW Std Deviation 13.4 Plt Count 199 MPV 10.4 Immature Gran % (Auto) 0.3 Neut % (Auto) 73.4 Lymph % (Auto) 12.8 L Carbon % (Auto) 7.3 Eos % (Auto) 5.9 Baso % (Auto) 0.3 Immature Gran # (Auto) 0.02 Neut # (Auto) 5.21 Lymph # (Auto) 0.91 L Carbon # (Auto) 0.52 Eos # (Auto) 0.42 Baso # (Auto) 0.02 PT 13.6 INR 1.02 PTT (Actin FS) 27.0 Orders Category Date Time Status Cardiac Monitoring DIRECTED Care 06/27/19 17:27 Active Oxygen Therapy- ED Nursing DIRECTED Care 06/27/19 17:27 Active Saline Loc NOW Care 06/27/19 17:27 Active CHEST-2 VIEWS [RAD] Stat Exams 06/27/19 17:27 Taken CBC WITH ELECTRONIC DIFF [HEME] Stat Lab 06/27/19 17:44 Completed CK PROFILE [SP CHEM] Stat Lab 06/27/19 17:44 Received COMPREHENSIVE METABOLIC PANEL [CHEM] Stat Lab 06/27/19 17:44 Received INFLUENZA SCREEN A/B Stat Lab 06/27/19 17:29 Completed PRO B-NATRIURETIC PEPTIDE Stat Lab 06/27/19 17:44 Received PROTIME WITH INR [COAG] Stat Lab 06/27/19 17:44 Completed PTT [COAG] Stat Lab 06/27/19 17:44 Completed TROPONIN T HIGH SENSITIVITY Stat Lab 06/27/19 17:44 Received UA Reflex [URINALYSIS W/POSS RFLX CULT] [URINALYSIS] Lab 06/27/19 17:32 Uncollected Stat Aspirin Med 06/27/19 17:26 Discontinued 325 mg PO NOW ONE CP/SOB/Palp >45 yrs of Age Stat Oth 06/27/19 17:26 Ordered EKG [EKG] Stat Ther 06/27/19 17:27 Ordered Result Diagrams: 06/27/19 17:44 06/27/19 17:44 - EKG 1 Time of EKG reading by physician:: 17:33 EKG Read and Signed by:: Yanira Arriola EKG Interpretation (*Must complete 3 of following elements*): Normal Rate: 81 Rhythm: nsr [place]: normal QRS: normal SD Interval: normal ST Wave: normal - XRAY 1 XRAY Study: Chest Impression: Abnormal ( Signed EXAM: CHEST-2 VIEWS 06/27/2019 HISTORY: sob TECHNIQUE: PA and lateral chest COMMENT: There is atelectasis anteriorly in the lingula and right upper lobe. This is worse than on the previous study of 02/16/2019. IMPRESSION: Atelectasis versus pneumonia in both upper lobes. Electronically signed by Jay Amador 06/27/2019 6:18 PM 06/27/191817 Interpreting Physician: Jay Amador MD Dictated Date/Time: 06/27/191817 cc: Yanira Arriola MD; Jose Shin MD) - CHANGE OF SHIFT REPORT (ED Provider) 1 Report Given and Care Transferred to:: Dr Vicente Time of Transfer: 19:00 Items Pending: Labs, XRAY Results <Yanira Arriola - Last Filed: 06/27/19 18:50> - PLAN OF CARE/RESULTS Progress/Plan/Lab Results: Vital Signs - 8 hr 06/27/19 17:22 Temperature 100.9 F H Pulse Rate 64 Respiratory Rate 24 Blood Pressure 160/77 O2 Sat by Pulse Oximetry 98 06/27/19 19:25 Group A Strep Rapid Antigen - Final Throat 06/27/19 17:29 Influenza Screen - Final Nasopharyngeal Laboratory Results - last 24 hr 06/27/19 06/27/19 06/27/19 17:44 17:44 17:44 WBC 7.10 RBC 3.65 L Hgb 10.7 L Hct 35.7 L MCV 97.8 MCH 29.3 MCHC 30.0 L RDW Std Deviation 13.4 Plt Count 199 MPV 10.4 Immature Gran % (Auto) 0.3 Neut % (Auto) 73.4 Lymph % (Auto) 12.8 L Carbon % (Auto) 7.3 Eos % (Auto) 5.9 Baso % (Auto) 0.3 Immature Gran # (Auto) 0.02 Neut # (Auto) 5.21 Lymph # (Auto) 0.91 L Carbon # (Auto) 0.52 Eos # (Auto) 0.42 Baso # (Auto) 0.02 PT INR PTT (Actin FS) Specimen Type Sample Site pH pCO2 pO2 HCO3 Base Excess Oxyhemoglobin ABG O2 Sat (Calculated) ABG O2 Saturation ABG Carboxyhemoglobin ABG Methemoglobin Ang Test A-a O2 Difference Total Hemoglobin Lactate Liter Flow Blood Gas Modality FiO2 % Sodium 145 Potassium 4.3 Chloride 104 Carbon Dioxide 29 Anion Gap 12 BUN 30 H Creatinine 2.2 H Estimated GFR/1.73 m2 23 BUN/Creatinine Ratio 14 Glucose 85 Calculated Osmolality 294 Calcium 8.8 Total Bilirubin 0.43 AST 25 ALT 24 Alkaline Phosphatase 131 H Creatine Kinase 108 Troponin T High Sens Cnl-C-Ccuiukqwwho Pept 1779 H Total Protein 6.3 Albumin 3.9 Globulin 2.4 Albumin/Globulin Ratio 1.6 Plasma Lactate Urine Source Urine Color Urine Turbidity Urine pH Ur Specific [place] Urine Protein Ur Glucose (Stick) Ur Ketones (Stick) Urine Blood Urine Nitrite Urine Bilirubin Urobilinogen Dipstick Urine Leukocytes Urine WBC (Auto) Urine RBC (Auto) U Epithel Cells (Auto) Urine Bacteria (Auto) 06/27/19 06/27/19 06/27/19 17:44 17:44 17:44 WBC RBC Hgb Hct MCV MCH MCHC RDW Std Deviation Plt Count MPV Immature Gran % (Auto) Neut % (Auto) Lymph % (Auto) Carbon % (Auto) Eos % (Auto) Baso % (Auto) Immature Gran # (Auto) Neut # (Auto) Lymph # (Auto) Carbon # (Auto) Eos # (Auto) Baso # (Auto) PT 13.6 INR 1.02 PTT (Actin FS) 27.0 Specimen Type Sample Site pH pCO2 pO2 HCO3 Base Excess Oxyhemoglobin ABG O2 Sat (Calculated) ABG O2 Saturation ABG Carboxyhemoglobin ABG Methemoglobin Ang Test A-a O2 Difference Total Hemoglobin Lactate Liter Flow Blood Gas Modality FiO2 % Sodium Potassium Chloride Carbon Dioxide Anion Gap BUN Creatinine Estimated GFR/1.73 m2 BUN/Creatinine Ratio Glucose Calculated Osmolality Calcium Total Bilirubin AST ALT Alkaline Phosphatase Creatine Kinase Troponin T High Sens 31 H Fxn-U-Yhwoemhpopx Pept Total Protein Albumin Globulin Albumin/Globulin Ratio Plasma Lactate 1.3 Urine Source Urine Color Urine Turbidity Urine pH Ur Specific [place] Urine Protein Ur Glucose (Stick) Ur Ketones (Stick) Urine Blood Urine Nitrite Urine Bilirubin Urobilinogen Dipstick Urine Leukocytes Urine WBC (Auto) Urine RBC (Auto) U Epithel Cells (Auto) Urine Bacteria (Auto) 06/27/19 06/27/19 19:40 19:40 WBC RBC Hgb Hct MCV MCH MCHC RDW Std Deviation Plt Count MPV Immature Gran % (Auto) Neut % (Auto) Lymph % (Auto) Carbon % (Auto) Eos % (Auto) Baso % (Auto) Immature Gran # (Auto) Neut # (Auto) Lymph # (Auto) Carbon # (Auto) Eos # (Auto) Baso # (Auto) PT INR PTT (Actin FS) Specimen Type ARTERIAL Sample Site R RADIAL pH 7.45 pCO2 41 pO2 49 L* HCO3 27.9 H Base Excess 4.1 H Oxyhemoglobin 87.7 L* ABG O2 Sat (Calculated) 13.1 L ABG O2 Saturation 90.4 L ABG Carboxyhemoglobin 2.40 ABG Methemoglobin 0.6 Ang Test YES A-a O2 Difference 128.0 Total Hemoglobin 10.6 L Lactate 0.70 Liter Flow 3.0 Blood Gas Modality CANNULA FiO2 % 32.0 Sodium Potassium Chloride Carbon Dioxide Anion Gap BUN Creatinine Estimated GFR/1.73 m2 BUN/Creatinine Ratio Glucose Calculated Osmolality Calcium Total Bilirubin AST ALT Alkaline Phosphatase Creatine Kinase Troponin T High Sens Idm-U-Vijqdpvlxaz Pept Total Protein Albumin Globulin Albumin/Globulin Ratio Plasma Lactate Urine Source CLEAN CATCH Urine Color YELLOW Urine Turbidity CLEAR Urine pH 7.0 Ur Specific [place] 1.016 Urine Protein NEGATIVE Ur Glucose (Stick) NEGATIVE Ur Ketones (Stick) NEGATIVE Urine Blood NEGATIVE Urine Nitrite NEGATIVE Urine Bilirubin NEGATIVE Urobilinogen Dipstick NORMAL Urine Leukocytes NEGATIVE Urine WBC (Auto) <10 Urine RBC (Auto) <10 U Epithel Cells (Auto) <10 Urine Bacteria (Auto) NEGATIVE Orders Category Date Time Status Cardiac Monitoring DIRECTED Care 06/27/19 17:27 Active Oxygen Therapy- ED Nursing DIRECTED Care 06/27/19 17:27 Active Saline Loc NOW Care 06/27/19 17:27 Active CHEST-2 VIEWS [RAD] Stat Exams 06/27/19 17:27 Completed ABG [RESP] Routine Lab 06/27/19 19:40 Completed BLOOD CULTURE [BLDCUL] Stat Lab 06/27/19 17:44 Ordered CBC WITH ELECTRONIC DIFF [HEME] Stat Lab 06/27/19 17:44 Completed CK PROFILE [SP CHEM] Stat Lab 06/27/19 17:44 Completed COMPREHENSIVE METABOLIC PANEL [CHEM] Stat Lab 06/27/19 17:44 Completed DIRECT STREP Stat Lab 06/27/19 19:25 Completed INFLUENZA SCREEN A/B Stat Lab 06/27/19 17:29 Completed LACTATE, PLASMA [CHEM] Stat Lab 06/27/19 17:44 Completed PRO B-NATRIURETIC PEPTIDE Stat Lab 06/27/19 17:44 Completed PROTIME WITH INR [COAG] Stat Lab 06/27/19 17:44 Completed PTT [COAG] Stat Lab 06/27/19 17:44 Completed TROPONIN T HIGH SENSITIVITY Stat Lab 06/27/19 17:44 Completed UA Reflex [URINALYSIS W/POSS RFLX CULT] [URINALYSIS] Lab 06/27/19 19:40 Completed Stat Albuterol 2.5MG/Ipratrop 0.5MG [Duoneb (A & A)] Med 06/27/19 20:08 Discontinued 3 ml INH NOW ONE Aspirin Med 06/27/19 17:26 Discontinued 325 mg PO NOW ONE Azithromycin 500 mg/Ns [Zithromax 500 mg/Ns] Med 06/27/19 20:15 Active 500 mg in 250 ml IV Q24H CefTRIAXONE [Rocephin] 500 mg Med 06/27/19 21:00 Active 0.9% Sodium Chloride Inj [Ns] 50 ml IV ONCE CefTRIAXONE [Rocephin] 500 mg Med 06/27/19 20:15 Ordered 0.9% Sodium Chloride Inj [Ns] 50 ml IV Q24H Furosemide [Lasix] Med 06/27/19 20:08 Discontinued 40 mg IV NOW ONE Methylprednisolone Sod Succ [Solu-Medrol] Med 06/27/19 20:08 Discontinued 125 mg IV NOW ONE Aerosol Treatments Routine Oth 06/27/19 20:08 Active Aerosol Treatments Stat Oth 06/27/19 20:08 Active CP/SOB/Palp >45 yrs of Age Stat Oth 06/27/19 17:26 Ordered EKG [EKG] Stat Ther 06/27/19 17:27 Draft Patient signed out to me pending final dispo. CXR showing atelectasis vs possible PNA. She did have a temp upon arrival to 100.9. No leukocytosis however. She does not take O2 at home but is requiring NC at this time. Her ABG is showing low PO2 and SpO2 of 90%. Her BNP is 1800. Has been noncompliant with her xarelto recently but cannot CTA given Cr which appears to be at her baseline if not better. She does sound diminished and wheezing. She appears tachypneic. She states her breathing has not improved. Will require admission. SPoke to Dr Langford, relationship consultant for hospitalist who accepted patient for admission. Further orders to be placed by his team. Result Diagrams: 06/27/19 17:44 06/27/19 17:44 - CONSULTS/PCP/HOSPITALIST Notification #1 *Consult/PCP/Hospitalist*: Dr Langford Time Discussed: 20:38 Consult Disposition: Admit <Nita Vicente - Last Filed: 06/27/19 20:45> Departure <Yanira Arriola - Last Filed: 06/27/19 18:50> - Departure Date of Disposition Decision: 06/27/19 Time of Disposition Decision: 20:38 Certified Medical Emergency: Emergent - Critical Care Note This patient required my direct & personal management of CC.: Yes Total Time (mins): 35 Critical Care Statement: This patient required my direct personal management to treat or rule out processes, the absence of which, could potentiallly result in sudden, clinically significant life or limb threatening deterioration. <Nita Vicente - Last Filed: 06/27/19 20:45> - Departure DIAGNOSIS: COPD (chronic obstructive pulmonary disease), CHF (congestive heart failure), Hypoxia, Renal failure, Bilateral pneumonia Disposition: ADMITTED INPATIENT 09 Condition: Stable Referrals and Follow-Ups: oJse Shin MD [NON-STAFF PROVIDER] - Attestation - Physician/ NADEEM Attestation Patient care was provided by Advanced Practice Provider:: No The physician spent face to face time with patient:: Yes Advanced Practice Provider documentation review:: Supervising physician onsite and consulted in the evaluation and care of this patient. The physician did have a face to face encounter with the patient. <Nita Vicente - Last Filed: 06/27/19 20:45> This chart was documented by the indicated scribe, (Kathy Oviedo Scribe) and accurately reflects the services I performed and decisions made by me, Yanira Arriola MD, as attested by the provider's signature.
[2019-06-27 19:43] LABS: URINE SOURCE CLEAN CATCH
[2019-06-27 19:46] LABS: BILIRUBIN URINE NEGATIVE (NEGATIVE); BLOOD URINE NEGATIVE (NEGATIVE); COLOR YELLOW; GLUCOSE URINE NEGATIVE (NEGATIVE); KETONE URINE NEGATIVE (NEGATIVE); LEUKOCYTES URINE NEGATIVE (NEGATIVE); NITRITE URINE NEGATIVE (NEGATIVE); PROTEIN URINE NEGATIVE (NEGATIVE); SP GRAVITY URINE 1.016; TURBIDITY URINE CLEAR (CLEAR); UROBILINOGEN URINE NORMAL (NORMAL)
[2019-06-27 19:47] LABS: UR EPITHELIAL CELLS <10 /HPF (<10); URINE BACTERIA NEGATIVE /HPF; URINE RBC <10 /HPF (<10); URINE WBC <10 /HPF (<10)
[2019-06-27 19:53] LABS: ALLEN TEST YES; BE 4.1 mmoll (-3.0-3.0); BLOOD TYPE ARTERIAL; HCO3-(ACT) 27.9 mmoll (20.0-26.0); METHB 0.6 % (0.0-1.5); O2(CT) 13.1 mL/dL (15.0-23.0); PCO2(98.6) 41 mmHg (35-45); SAMPLE BLOOD; SAO2 90.4 % (95.0-100.0); THB 10.6 g/dL (11.5-17.4); pH(98.6) 7.45 (7.35-7.45)
[2019-06-27 19:55] LABS: PO2(98.6) 49 mmHg (60-100)
[2019-06-27 19:56] LABS: MODALITY CANNULA; O2HB 87.7 % (95.0-99.0)
--- NOTE | 2019-06-27 20:07 | EKG Report ---
Test Performed on : 06/27/2019 5:33:06 PM Test Reason : sob Blood Pressure : / mmHG Vent. Rate : 081 BPM Atrial Rate : 081 BPM P-R Int : 174 ms QRS Dur : 096 ms QT Int : 408 ms P-R-T Axes : 027 -05 035 degrees QTc Int : 473 ms Normal sinus rhythm. Normal ECG When compared with ECG of 16-FEB-2019 16:44, No significant change was found Unconfirmed Result
[2019-06-27] MEDS ORDERED: SOLU-MEDROL IV ONE (20:08)
[2019-06-27] MEDS ORDERED: LASIX IV ONE (20:08)
[2019-06-27] MEDS ORDERED: DUONEB (A & A) INH ONE (20:08)
[2019-06-27] MEDS ORDERED: ZITHROMAX 500 MG/NS 500 MG/250 ML IVPB IV SCH (20:15)
[2019-06-27] MEDS ORDERED: ROCEPHIN 500 MG in NS 50 ML IV SCH (21:00)
[2019-06-27] MEDS ORDERED: ROCEPHIN 500 MG in NS 50 ML IV ONE (21:00)
[2019-06-27] MEDS ORDERED: TYLENOL PO PRN (22:32)
[2019-06-27] MEDS ORDERED: ZOFRAN IV PRN (22:32)
[2019-06-27] MEDS: DUONEB (A & A) INH SCH (23:27)
[2019-06-28] MEDS: XARELTO PO SCH ×2 (00:15→21:30)
[2019-06-28] MEDS: REQUIP PO SCH ×3 (00:15→21:30)
[2019-06-28] MEDS: NORCO-7.5 PO PRN ×2 (00:15→17:41)
[2019-06-28] MEDS: LEXAPRO PO SCH ×2 (00:15→21:30)
[2019-06-28] MEDS: ROCEPHIN 1 GM in NS 50 ML IV SCH (00:17)
--- NOTE | 2019-06-28 02:59 | HISTORY AND PHYSICAL ---
PRIMARY CARE PHYSICIAN: Dr. Zee. CHIEF COMPLAINT: Shortness of breath, fever, sore throat. HISTORY OF PRESENTING ILLNESS: A 59-year-old female with a history of COPD, diabetes mellitus type 2, CHF, chronic kidney disease and DVT, who had presented to emergency department with a 1- day history of having cough, shortness of breath and sore throat. The patient states that she was not feeling well. The patient was evaluated in the emergency department. She had imaging done which did show the possibility of pneumonia. Subsequently, she will require admission for further management. At the time of my examination, patient denied any headache, nausea, vomiting, diarrhea, chest pain, hemoptysis, melena, but complained of shortness of breath, cough and not feeling well. PAST MEDICAL HISTORY: Includes COPD, diabetes mellitus type 2, CHF, chronic kidney disease stage 3, DVT, restless legs syndrome, obstructive sleep apnea. PAST SURGICAL HISTORY: Hysterectomy, abdominal hernia repair, left detached retinal repair, breast implant, IVC filter. ALLERGIES: [id number] allergy medicines. CURRENT MEDICATIONS: Atorvastatin 40 mg p.o. at bedtime, Lexapro 20 mg p.o. at bedtime, ferrous sulfate 325 mg p.o. daily, Lasix 40 mg p.o. daily, gabapentin 200 mg p.o. t.i.d., [place] 7.5 mg t.i.d. levothyroxine 100 mcg p.o. daily, lisinopril 20 mg p.o. daily, metformin 850 mg p.o. daily, Xarelto 10 mg p.o. at bedtime, Requip 2 mg p.o. b.i.d. SOCIAL HISTORY: No history of smoking, alcohol or illicit drug use. FAMILY HISTORY: Positive for coronary disease in father. REVIEW OF SYSTEMS: Fourteen point review of systems is as listed in HPI. Other systems negative. PHYSICAL EXAMINATION: GENERAL: Cooperative, friendly female. She is resting more comfortably now. VITAL SIGNS: Temperature 100.9 degrees, pulse 64, respirations 24, blood pressure 160/77. HEENT: Atraumatic, normocephalic. NECK: No masses. CHEST: Rhonchi. CARDIOVASCULAR: Regular rate and rhythm. ABDOMEN: Soft. Positive bowel sounds. EXTREMITIES: +1 edema. NEUROLOGIC: She is awake, alert, oriented x3. GENITOURINARY: No bladder distention. SKIN: Warm. LABORATORIES AND STUDIES: WBC 7.10, hemoglobin 10.7, hematocrit 35.7, platelets 199,000. PH is 7.45, pCO2 is 41, PO2 is 49. Sodium 145, potassium 4.3, chloride 104, CO2 is 29, BUN is 30, creatinine is 2.2, glucose is 85. ProBNP is 1779. Chest x-ray shows suspected pneumonia in both upper lobes. ASSESSMENT: This is a 59-year-old female with a history of chronic obstructive pulmonary disease, diabetes mellitus type 2, congestive heart failure, chronic kidney disease, who had presented to emergency department with 1-day history of having cough, shortness of breath and sore throat. She was evaluated in the emergency department. She had imaging done which did raise the possibility of pneumonia. Subsequently, she will need admission for further management. 1. Probable pneumonia. 2. Chronic obstructive pulmonary disease exacerbation. 3. Congestive heart failure. 4. Diabetes mellitus type 2. 5. Hypertension. 6. Chronic kidney disease. PLAN: 1. We will admit patient to medical floor with telemetry. 2. We will check blood cultures. Start patient on IV antibiotics. 3. We will continue with DuoNebs. 4. We will restart her diuretics. 5. Monitor blood glucose and put patient on sliding scale insulin regimen. 6. We will monitor blood pressure closely, resume antihypertensive agent. 7. Monitor her renal function closely. 8. The patient is already on Xarelto and this will suffice for DVT prophylaxis. 9. We will continue to follow, reassess and make further recommendation based on patient's clinical course. cc: Caleb Langford MD
[2019-06-28] MEDS: DUONEB (A & A) INH SCH ×6 (03:51→23:16)
[2019-06-28] MEDS: SYNTHROID PO SCH (06:23)
[2019-06-28] MEDS: HUMULIN R SUBQ SCH ×4 (06:23→20:37)
[2019-06-28 08:40] LABS: BASO# 0.01 X1000 (0.0-0.2); BASO% 0.3 % (0.0-0.8); HEMATOCRIT 34.1 % (37.0-47.0); HEMOGLOBIN 10.1 g/dL (12.0-16.0); LYMPH# 0.39 X1000 (1.2-3.4); LYMPH% 10.8 % (20.5-51.1); MCH 28.7 PG (27-31); MCHC 29.6 g/dL (33-37); MCV 96.9 FL (81-99); MONO# 0.11 X1000 (0.11-0.59); MPV 10.5 FL (7.4-10.4); NEUT# 3.11 X1000 (1.4-6.5); NEUT% 85.9 % (42.2-75.2); PLT 177 X1000 (130-400); RBC 3.52 XMIL (4.2-5.4); RDW 13.3 % (11.5-14.5); WBC 3.62 X1000 (4.8-10.8)
[2019-06-28 08:58] LABS: LYMPHS 14 % (21-51); MONO 2 % (1-9); SEGS 84 % (42-75)
[2019-06-28] MEDS ORDERED: NORCO-7.5 PO SCH (09:00)
[2019-06-28] MEDS: LASIX PO SCH (09:21)
[2019-06-28] MEDS: PRINIVIL PO SCH (09:21)
[2019-06-28] MEDS: FERROUS SULFATE PO SCH (09:21)
[2019-06-28] MEDS: NEURONTIN PO SCH ×3 (09:22→21:30)
[2019-06-28 09:26] LABS: CREATININE 2.2 mg/dL (0.5-0.9); POTASSIUM 4.4 mmol/L (3.5-5.1)
--- NOTE | 2019-06-28 12:32 | PROGRESS NOTE ---
DATE: 06/28/2019 SUBJECTIVE: Ms. Darden was admitted yesterday. This is a 59-year-old female, a patient Dr. Zee, history of COPD, diabetes mellitus type 2, congestive heart failure, chronic kidney disease, history of DVT, came to the emergency room with a 1-day history of having cough, shortness of breath and sore throat. States she was not feeling well. Patient was evaluated in the emergency department. Imaging done that showed possibly of pneumonia. Subsequently, we put her in for medical management. PAST MEDICAL HISTORY: Includes COPD, diabetes mellitus type 2, congestive heart failure, chronic kidney disease stage III, DVT, restless legs syndrome, obstructive sleep apnea. PAST SURGICAL HISTORY: Hysterectomy, abdominal hernia repair, left detached retinal repair, breast implant, IVC filter. ADMISSION DIAGNOSES: 1. Probable pneumonia. 2. Obstructive pulmonary disease exacerbation. 3. Congestive heart failure. 4. Diabetes mellitus type 2. 5. Hypertension. 6. Chronic kidney disease. Today, she says she does not feel very good, does not feel much better. OBJECTIVE: Vital signs: Temperature 98 degrees, remains afebrile, pulse 70, respirations 16, blood pressure 131/75, HEENT: Pupils are equal. Neck: No distended neck veins. Lungs: Clear in all lung molina. She does have wheezing, end-expiratory, diffusely throughout her lungs Cardiovascular: Regular rhythm and rate without murmur or S3. Abdomen: Soft. LABORATORY DATA: White count is 3620, hematocrit is 34, hemoglobin 10, platelet count 177,000. Sodium 146, potassium 4.4, chloride 105, BUN 33, creatinine 2.2. Blood sugars 114, 134. Urinalysis unremarkable. ProTime is 13.6, PTT is 27. Blood gases on arrival yesterday, pH was 7.45, pCO2 41, PO2 was 49, O2 saturation was 90%. ASSESSMENT AND PLAN: 1. Probable pneumonia. Continue present antibiotics and bronchodilators. 2. She has some bronchospasm and wheezing appreciated. Continue bronchodilators, supplementary O2. 3. Chronic obstructive pulmonary disease exacerbation. 4. Congestive heart failure. 5. Diabetes mellitus type 2. 6. Hypertension. 7. Chronic kidney disease. REVIEW OF HER ORDERS: She is on Lipitor 40 mg at bedtime, Xarelto 10 mg at bedtime, albuterol ipratropium 3 mL q.4 hours, Lexapro 20 mg at bedtime, ferrous sulfate 325 mg daily, Lasix 40 mg a day, Neurontin 200 mg p.o. t.i.d., hydrocodone 7.5 mg every 8 hours p.r.n., Synthroid 100 mcg p.o. daily, Prinivil 20 mg daily, ceftriaxone 1 g IV q.24 hours, Requip 2 mg p.o. b.i.d., azithromycin 500 mg IV q.24 hours, aspirin 325 mg a day. cc: Ang Dennis MD
[2019-06-28] MEDS ORDERED: ROCEPHIN 500 MG in NS 50 ML IV SCH (21:00)
[2019-06-28] MEDS: ZITHROMAX 500 MG/NS 500 MG/250 ML IVPB IV SCH (21:29)
[2019-06-28] MEDS: LIPITOR PO SCH (21:30)
[2019-06-29] MEDS: NORCO-7.5 PO PRN ×3 (01:45→20:44)
[2019-06-29] MEDS: DUONEB (A & A) INH SCH ×6 (03:44→23:03)
[2019-06-29] MEDS: SYNTHROID PO SCH (06:05)
[2019-06-29] MEDS: HUMULIN R SUBQ SCH ×4 (06:16→20:45)
[2019-06-29] MEDS: ROCEPHIN 1 GM in NS 50 ML IV SCH (08:50)
[2019-06-29] MEDS: PRINIVIL PO SCH (08:51)
[2019-06-29] MEDS: REQUIP PO SCH ×2 (08:51→20:44)
[2019-06-29] MEDS: NEURONTIN PO SCH ×4 (08:51→20:43)
[2019-06-29] MEDS: FERROUS SULFATE PO SCH (08:51)
[2019-06-29] MEDS: LASIX PO SCH (08:51)
--- NOTE | 2019-06-29 10:53 | PROGRESS NOTE ---
DATE: 06/29/2019 SUBJECTIVE: Ms. Darden says she is breathing a little better. She would like to get up and ambulate a little more. She wants me to take the alarm off her bed. OBJECTIVE: Vital signs: Temperature 97.4 degrees, pulse 88, respirations 16, blood pressure 125/79. HEENT: Pupils are equal and round. Lungs: Clear. Neck: No distended neck veins. CVP less than 6 cm. Cardiovascular: Regular rhythm and rate without murmur or S3. Abdomen: Soft. Skin: Warm and dry. ASSESSMENT AND PLAN: 1. Probable pneumonia. Continue present antibiotics and bronchodilators. 2. Bronchospasm and wheezing which is much better. Continue her present treatment, supplementary O2. 3. Chronic obstructive pulmonary disease exacerbation. 4. Congestive heart failure. 5. Diabetes mellitus type 2. 6. Hypertension. 7. Chronic kidney disease. Looking back, she had an echocardiogram with Doppler on 01/24/2019. She had mild tricuspid regurgitation. RV pressure was 33 mmHg. Right ventricular size and systolic function were normal. Somewhat dilated left ventricle, end-diastolic dimension 5.9 cm. Calculated EF was 61%. Normal wall motion. REVIEW OF HER ORDERS: She is on Lipitor 40 mg a day, Xarelto 10 mg at bedtime, Lexapro 20 mg at bedtime, ferrous sulfate 325 mg daily, Lasix 40 mg a day, Neurontin 200 mg p.o. t.i.d., Synthroid 100 mcg p.o. daily, Prinivil 20 mg a day, ceftriaxone 1 g IV q.24 hours, Requip 2 mg p.o. b.i.d., and azithromycin 500 mg IV q.24 hours. LABORATORY DATA: Reviewed from yesterday. Hematocrit 34, hemoglobin 10, white blood cell count 3620, platelet count 177,000. Sodium 146, potassium 4.4, chloride 105, BUN 33, creatinine 2.2. Blood sugars look good so I think we are making good improvement. I am going to check another chest x-ray tomorrow. She can ambulate ad jesu and I will get Physical Therapy involved as well. cc: Ang Dennis MD
[2019-06-29] MEDS ORDERED: LANOXIN IV ONE (13:21)
[2019-06-29] MEDS: LOPRESSOR PO SCH ×2 (13:42→20:44)
--- NOTE | 2019-06-29 18:09 | CONSULTATION ---
DATE OF CONSULTATION: 06/29/2019 IMPRESSION: 1. Atrial fibrillation, rapid ventricular rate of recent onset this admission. 2. Patient currently admitted for pneumonia after presenting with cough, shortness of breath and abnormal chest x-ray. 3. Chronic obstructive pulmonary disease. 4. Type 2 diabetes mellitus. 5. Chronic kidney disease with creatinine around 2.2. 6. Congestive heart failure with preserved left ventricular ejection fraction. She had negative coronary angiography in June 2016 and at that time had preserved left ventricular systolic function and markedly elevated left ventricular end-diastolic pressure. She also had moderate pulmonary hypertension. 7. History of deep vein thrombosis. RECOMMENDATIONS: 1. Agree with initiation of metoprolol for rate control. She appears to be tolerating her atrial fibrillation fairly well. 2. Continue Xarelto dosed according to renal function. 3. If atrial fibrillation persists following improvement in her overall clinical status and improvement in her pneumonia, may consider cardioversion. HISTORY: This 59-year-old white female has history of COPD, type 2 diabetes mellitus, chronic kidney disease with creatinine 2.2, previous DVT and congestive heart failure with preserved left ventricular systolic function was admitted a few days ago with cough and shortness of breath and abnormal chest x-ray. She is felt to have pneumonia. She has been on treatment for pneumonia. There has been no angina. She does describe some right-sided atypical chest discomfort. This morning she developed atrial fibrillation, rapid ventricular rate and for this reason Cardiology was consulted. She is really not that aware of her atrial tachyarrhythmia. She has been started on metoprolol and her heart rate started coming down. She has been on anticoagulation with Xarelto at 10 mg daily. She had previous negative coronary angiography in June 2016. PAST MEDICAL HISTORY: 1. COPD. 2. Type 2 diabetes mellitus. 3. Congestive heart failure with preserved left ventricular ejection fraction. Coronary angiography June 2016 negative. 4. Chronic kidney disease stage 3. Creatinine 2.2. 5. Previous DVT. 6. Restless legs syndrome. 7. Obstructive sleep apnea. 8. Obesity. PAST SURGICAL HISTORY: Includes hysterectomy, abdominal hernia repair, left detached retina repair, breast implant and inferior vena cava filter. ALLERGIES: She has no known prescription drug allergy. MEDICATIONS PRIOR TO ADMISSION: As listed. SOCIAL HISTORY: She has history of previous cigarette use in the past but discontinued this. She does not use alcohol. FAMILY HISTORY: Negative for premature coronary disease. REVIEW OF SYSTEMS: Pulmonary: Noteworthy for cough minimally productive and shortness of breath. Gastrointestinal: Negative. Constitutional: Negative for fever. Remainder of review of systems negative/noncontributory with 14 total systems reviewed. PHYSICAL EXAMINATION: This is a obese older middle-aged female in no distress.Vital signs: Blood pressure 118/79, heart rate 57, oxygen saturation 100%. HEENT: Extraocular movements intact. Sclerae are pale. Mucous membranes moist. Neck: Supple without jugular venous distention. There are no carotid bruits. Chest: Clear to auscultation bilaterally. Cardiac: Reveals a irregular rate and rhythm without appreciable murmur or gallop. Abdomen: Soft. Bowel sounds normal. Extremities: Without edema. Neurologic: Reveals her to be alert and fully oriented. Speech is fluent. She moves all 4 extremities equally well. Skin: Warm, dry. Psychiatric: Reveals her mood to be appropriate. LAB DATA: Includes a white blood cell count 3.62, hematocrit 34.1, hemoglobin 10.1, platelet count 177,000. Sodium 146, potassium 4.4, chloride 105, carbon dioxide 27, BUN 33, creatinine 2.2, glucose 145. Twelve lead EKG obtained on admission demonstrates normal sinus rhythm and is within normal limits. Twelve lead EKG from this morning demonstrates atrial fibrillation with rapid ventricular rate with occasional premature ventricular or aberrantly conducted complexes and nonspecific ST abnormality. cc: Pro Whitmore MD
--- NOTE | 2019-06-29 19:18 | EKG Report ---
Test Performed on : 06/29/2019 12:55:59 PM Test Reason : afib Blood Pressure : / mmHG Vent. Rate : 162 BPM Atrial Rate : 174 BPM P-R Int : 000 ms QRS Dur : 098 ms QT Int : 318 ms P-R-T Axes : 000 -15 055 degrees QTc Int : 522 ms Critical Test Result: High HR Atrial fibrillation. with rapid ventricular response. with premature ventricular or aberrantly conduc alva complexes. Nonspecific ST abnormality Abnormal ECG When compared with ECG of 27-JUN-2019 17:33, (Unconfirmed) Atrial fibrillation. has replaced Sinus rhythm. Vent. rate has increased BY 81 BPM Confirmed by Iman Mendoza MD ([id number]) on 07/02/2019 7:39:26 AM
[2019-06-29] MEDS: LIPITOR PO SCH (20:43)
[2019-06-29] MEDS: LEXAPRO PO SCH (20:43)
[2019-06-29] MEDS: XARELTO PO SCH (20:44)
[2019-06-29] MEDS: ZITHROMAX 500 MG/NS 500 MG/250 ML IVPB IV SCH ×2 (20:46→22:32)
[2019-06-30] MEDS: DUONEB (A & A) INH SCH ×6 (03:22→23:01)
[2019-06-30] MEDS: NORCO-7.5 PO PRN ×3 (05:07→20:42)
[2019-06-30] MEDS: SYNTHROID PO SCH ×2 (05:08→06:10)
[2019-06-30] MEDS: LOPRESSOR PO SCH ×3 (05:08→20:42)
[2019-06-30] MEDS: HUMULIN R SUBQ SCH ×4 (06:10→20:48)
[2019-06-30] MEDS ORDERED: LOPRESSOR PO SCH (08:33)
--- NOTE | 2019-06-30 09:15 | Diag Imaging Result Doc PS360 ---
EXAM: CHEST-2 VIEWS 06/30/2019 HISTORY: pneumonia TECHNIQUE: AP upright at 0906 COMMENT: Compared to 06/27/2019 the atelectasis in the right middle lobe and lingula has improved. Otherwise are has been no significant change. IMPRESSION: Improved bibasilar lateral atelectasis. Electronically signed by Jay Amador 06/30/2019 9:12 AM
[2019-06-30] MEDS: REQUIP PO SCH ×2 (09:31→20:41)
[2019-06-30] MEDS: NEURONTIN PO SCH ×3 (09:32→20:42)
[2019-06-30] MEDS: ROCEPHIN 1 GM in NS 50 ML IV SCH (09:32)
[2019-06-30] MEDS: PRINIVIL PO SCH (09:32)
[2019-06-30] MEDS: LASIX PO SCH (09:32)
[2019-06-30] MEDS: FERROUS SULFATE PO SCH (09:32)
--- NOTE | 2019-06-30 15:23 | PROGRESS NOTE ---
DATE: 06/30/2019 Ms Darden feels better today. She would like something for sleep. She usually takes Ambien. Her heart rate went up and she was in atrial fibrillation with a rate running 160 to 170s. Gave her a dose of digoxin, put her on some Lopressor 50 mg p.o. q.8, blood pressure came down in the 50s and 60s so we decreased Lopressor down to 25 mg twice a day and Cardiology is following. She is breathing more comfortable and I think she has remained afebrile. Temperature is 97.4 degrees, pulse 54, respirations 16, blood pressure 127/74. Pupils are equal and round. Lungs are clear in all lung molina. Cardiovascular, regular rate without murmur or S3. Urine output is 1200 mL. Chest x-ray, improved bibasilar atelectasis. ASSESSMENT AND PLAN: 1. Developed atrial fibrillation, rapid ventricular rate of recent onset this admission. 2. Treating her for pneumonia, persistent cough and this seems to have improved clinically and radiographically. 3. Chronic obstructive pulmonary disease exacerbation. 4. Diabetes mellitus type 2. 5. Chronic kidney disease. Creatinine stays around 2.2. 6. Congestive heart failure, preserved left ventricular ejection fraction and negative coronary angiography June 2016 and at that time preserved left ventricular function. She had markedly elevated left ventricular end-diastolic pressure and she also had moderate pulmonary hypertension. 7. History of deep venous thrombosis. Review of her orders she is on Lipitor 40 mg a day, Xarelto 10 mg at bedtime, Lexapro 20 mg at bedtime, Lasix 40 mg a day, Neurontin 200 mg p.o. t.i.d., lisinopril 20 mg a day, Lopressor 25 mg b.i.d., ceftriaxone 1 g IV q.24 hours, azithromycin 500 mg IV q.24 hours, Requip 2 mg b.i.d. She only got 1 dose of digoxin IV that was 500 mcg and I have reduced her Lopressor down to 25 mg twice a day. LAB: From today, hematocrit stable at 34, white count 3620, platelet count 177,000. Blood sugars 241, 87 and 112. cc: MD BOB Albrecht
[2019-06-30] MEDS: AMBIEN PO PRN (15:50)
[2019-06-30] MEDS: XARELTO PO SCH (20:41)
[2019-06-30] MEDS: LIPITOR PO SCH (20:42)
[2019-06-30] MEDS: LEXAPRO PO SCH (20:42)
[2019-06-30] MEDS: ZITHROMAX 500 MG/NS 500 MG/250 ML IVPB IV SCH ×2 (20:43→22:52)
[2019-07-01] MEDS: DUONEB (A & A) INH SCH ×6 (03:37→22:57)
[2019-07-01] MEDS: SYNTHROID PO SCH ×2 (05:22→06:05)
[2019-07-01] MEDS: NORCO-7.5 PO PRN ×2 (05:22→20:27)
[2019-07-01] MEDS: HUMULIN R SUBQ SCH ×4 (06:05→20:49)
[2019-07-01] MEDS: LOPRESSOR PO SCH ×2 (09:10→20:28)
[2019-07-01] MEDS: FERROUS SULFATE PO SCH (09:10)
[2019-07-01] MEDS: REQUIP PO SCH ×2 (09:10→20:28)
[2019-07-01] MEDS: LASIX PO SCH (09:10)
[2019-07-01] MEDS: NEURONTIN PO SCH ×3 (09:10→20:28)
[2019-07-01] MEDS: PRINIVIL PO SCH (09:10)
[2019-07-01] MEDS: ROCEPHIN 1 GM in NS 50 ML IV SCH (10:00)
--- NOTE | 2019-07-01 13:49 | PROGRESS NOTE ---
DATE: 07/01/2019 SUBJECTIVE: Ms. Darden feels better. She has complained of some pain in her left side, which appears to be more in the muscle around the left pelvic rim. She is complaining that her right knee is bothering her. She would like to get an x-ray of that right knee. Her breathing is comfortable. She does not complain of chest pain or palpitations. OBJECTIVE: Temperature 97.9 degrees, pulse 60, respirations 16, and blood pressure 136/79. Pupils are equal and round. Lungs are clear in all lung molina. Cardiovascular exam with regular rhythm and rate without murmur or S3. Abdomen is soft. Skin is warm and dry. ASSESSMENT AND PLAN: 1. Atrial fibrillation with rapid ventricular rate. Appears to be under better control. Cardiology is following. Hemodynamically, she appears stable. No chest pain. 2. Treating her for pneumonia, persistent cough. This is improving radiographically and clinically. 3. Chronic obstructive pulmonary disease with exacerbation, pneumonia. 4. Diabetes mellitus type 2. Blood sugars under good control. 5. Chronic kidney disease. Continue to follow. Her creatinine is 2.2 on the . We are going to recheck electrolytes and CBC. Recheck her chest x-ray. Continue physical therapy and try and get her up in a chair. Hopefully, she can go home soon. cc: Ang Dennis MD
--- NOTE | 2019-07-01 15:24 | PROGRESS NOTE ---
DATE: 07/01/2019 SUBJECTIVE: Patient progressively feeling better. She has spontaneously converted back to sinus rhythm. She denies any chest discomfort or shortness of breath. OBJECTIVE: Vital signs: Blood pressure 136/79, heart rate 61 with ECG monitor showing sinus rhythm. Oxygen saturation 95%. Neck: There is no significant jugular venous distention. Chest: Clear to auscultation bilaterally. Cardiac Exam: Reveals a regular rate and rhythm without appreciable murmur or gallop. There is no evidence of peripheral edema. IMPRESSIONS: 1. Transient atrial fibrillation with rapid ventricular rate during admission for pneumonia. Patient continues in sinus rhythm and asymptomatic from a cardiovascular standpoint. 2. Currently admitted for pneumonia with progressive improvement on treatment. 3. Chronic obstructive pulmonary disease. 4. Type 2 diabetes mellitus. 5. Chronic kidney disease with creatinine around 2.2. 6. Congestive heart failure with preserved left ventricular ejection fraction. Previous coronary angiography June 2016 negative for coronary disease. She did have markedly elevated left ventricular end-diastolic pressure and moderate pulmonary hypertension. 7. History of deep vein thrombosis. RECOMMENDATIONS: 1. Continue metoprolol. 2. Continue Xarelto, dosed according to renal function. 3. No further cardiovascular suggestions. Will see her further on an inpatient basis on an as needed basis. cc: Pro Whitmore MD
[2019-07-01] MEDS: LIPITOR PO SCH (20:27)
[2019-07-01] MEDS: XARELTO PO SCH (20:28)
[2019-07-01] MEDS: LEXAPRO PO SCH (20:28)
[2019-07-01] MEDS: ZITHROMAX PO SCH (20:52)
[2019-07-01] MEDS ORDERED: XARELTO PO SCH (21:00)
[2019-07-01] MEDS: AMBIEN PO PRN (22:25)
[2019-07-02] MEDS: DUONEB (A & A) INH SCH ×6 (05:30→23:30)
[2019-07-02] MEDS: NORCO-7.5 PO PRN ×2 (05:35→15:22)
[2019-07-02] MEDS: SYNTHROID PO SCH ×2 (05:35→06:24)
[2019-07-02] MEDS: HUMULIN R SUBQ SCH ×4 (06:24→20:52)
[2019-07-02] MEDS: PRINIVIL PO SCH (08:34)
[2019-07-02] MEDS: REQUIP PO SCH ×2 (08:34→20:50)
[2019-07-02] MEDS: FERROUS SULFATE PO SCH (08:34)
[2019-07-02] MEDS: LASIX PO SCH (08:34)
[2019-07-02] MEDS: LOPRESSOR PO SCH ×2 (08:34→20:50)
[2019-07-02] MEDS: NEURONTIN PO SCH ×3 (08:34→20:51)
[2019-07-02] MEDS: ROCEPHIN 1 GM in NS 50 ML IV SCH (08:34)
[2019-07-02 08:47] LABS: BASO# 0.02 X1000 (0.0-0.2); BASO% 0.4 % (0.0-0.8); EOS# 0.38 X1000 (0.0-0.7); EOS% 7.5 % (0.0-10.0); HEMATOCRIT 31.8 % (37.0-47.0); HEMOGLOBIN 9.4 g/dL (12.0-16.0); LYMPH# 1.09 X1000 (1.2-3.4); LYMPH% 21.5 % (20.5-51.1); MCH 28.7 PG (27-31); MCHC 29.6 g/dL (33-37); MONO# 0.45 X1000 (0.11-0.59); MONO% 8.9 % (1.7-9.3); MPV 10.6 FL (7.4-10.4); NEUT# 3.13 X1000 (1.4-6.5); NEUT% 61.7 % (42.2-75.2); PLT 205 X1000 (130-400); RBC 3.28 XMIL (4.2-5.4); RDW 12.7 % (11.5-14.5); WBC 5.07 X1000 (4.8-10.8)
--- NOTE | 2019-07-02 08:53 | Diag Imaging Result Doc PS360 ---
EXAM: CHEST-PORTABLE HISTORY: pneumonia TECHNIQUE: Single view COMPARISON: 06/30/2015 FINDINGS: The heart remains enlarged. There is vascular distention. Atelectasis or infiltrates are present in the mid right lung. No pleural effusions identified. IMPRESSION: No interval improvement Electronically signed by Kirill Betancourt 07/02/2019 8:50 AM
[2019-07-02 09:39] LABS: CALCIUM 8.8 mg/dL (8.8-10.2); POTASSIUM 4.1 mmol/L (3.5-5.1)
--- NOTE | 2019-07-02 16:44 | PROGRESS NOTE ---
DATE: 07/02/2019 SUBJECTIVE: I have seen and examined Ms. Darden today. Ms. Darden refers to be feeling well. Initially, we saw her going with physical therapy. At the end of her therapy, we went to see her again. She was sitting in the chair at the bedside. She refers to be doing well. She was still on supplemental oxygen. OBJECTIVE: Vital signs: Blood pressure 133/78, pulse of 60, respirations 14, and temperature 97.6 degrees. General: Ms. Darden is a 59-year-old female. She is sitting up in a chair in no distress. Mucosa is pink and moist. Anicteric. Acyanotic. Neck: Supple. Chest: Good air entry bilateral. A few distant crackles posteriorly. Cardiovascular: Regular rate and rhythm. Abdomen: Soft. Extremities: No pedal edema. TIEDOWN OPERATOR: Patient is awake, alert, and oriented. LABORATORY DATA: Chemistry is reviewed. Mild normocytic anemia. Chemistry is also reviewed. Creatinine is 2.0, and seems to be patient's baseline. ASSESSMENT: 1. Dyspnea on presentation secondary to pneumonia improved. 2. History of COPD with mild exacerbation on presentation. 3. Diabetes mellitus. 4. Transient atrial fibrillation with RVR during the hospital course improved. 5. Cardiology was consulted. 6. CKD stage 4. 7. Hypertension controlled. cc: Hansel Phillips MD
[2019-07-02] MEDS: LEXAPRO PO SCH (20:50)
[2019-07-02] MEDS: LIPITOR PO SCH (20:50)
[2019-07-02] MEDS: XARELTO PO SCH (20:50)
[2019-07-02] MEDS: ZITHROMAX PO SCH (20:50)
[2019-07-02] MEDS: AMBIEN PO PRN (22:18)
[2019-07-03] MEDS: DUONEB (A & A) INH SCH ×2 (03:00→07:53)
[2019-07-03] MEDS: SYNTHROID PO SCH (06:23)
[2019-07-03 07:40] LABS: HEMATOCRIT 32.1 % (37.0-47.0); HEMOGLOBIN 9.7 g/dL (12.0-16.0); MCH 29.6 PG (27-31); MCHC 30.2 g/dL (33-37); MCV 97.9 FL (81-99); MPV 10.2 FL (7.4-10.4); RBC 3.28 XMIL (4.2-5.4); RDW 12.9 % (11.5-14.5); WBC 6.1 X1000 (4.8-10.8)
[2019-07-03 08:10] VITALS: BP 153/79
[2019-07-03 08:22] LABS: ALBUMIN 3.6 g/dL (3.5-5.0); CALCIUM 9.1 mg/dL (8.8-10.2); CREATININE 1.9 mg/dL (0.5-0.9); PHOSPHORUS 4.5 mg/dL (2.7-4.5); POTASSIUM 4.4 mmol/L (3.5-5.1)
[2019-07-03] MEDS: FERROUS SULFATE PO SCH (08:47)
[2019-07-03] MEDS: REQUIP PO SCH (08:47)
[2019-07-03] MEDS: LOPRESSOR PO SCH (08:47)
[2019-07-03] MEDS: NEURONTIN PO SCH (08:48)
[2019-07-03] MEDS: PRINIVIL PO SCH (08:48)
[2019-07-03] MEDS: LASIX PO SCH (08:48)
[2019-07-03] MEDS: ROCEPHIN 1 GM in NS 50 ML IV SCH (08:48)
[2019-07-03] MEDS: NORCO-7.5 PO PRN (09:01)
[2019-07-03] MEDS: HUMULIN R SUBQ SCH (10:24)
--- NOTE | 2019-07-04 09:42 | DISCHARGE SUMMARY ---
ADMISSION DATE: 06/27/2019 DISCHARGE DATE: 07/03/2019 CONSULTATION DURING THIS ADMISSION: Cardiology was consulted and patient was seen by Dr. Argueta. INVASIVE PROCEDURES DONE: None. IMAGING STUDIES: Atelectasis versus pneumonia on upper lobes on a chest x-ray on admission. A repeat did show improved basilar atelectasis. Repeat yesterday showed interval improvement. ADMISSION DIAGNOSES: 1. Probable pneumonia. 2. Chronic obstructive pulmonary disease. 3. Congestive heart failure. 4. Diabetes mellitus. 5. Hypertension. 6. Chronic kidney disease. DIAGNOSES AT THE TIME OF DISCHARGE: 1. Dyspnea on presentation secondary to pneumonia, resolved. 2. History of chronic obstructive pulmonary disease with mild exacerbation on presentation, improved. 3. Diabetes mellitus type 2. 4. Transient atrial fibrillation with rapid ventricular response during the hospital course. The patient was evaluated by Cardiology. 5. Chronic kidney disease stage 4. 6. Hypertension, controlled. DISCHARGE MEDICATIONS: 1. Lexapro 20 mg p.o. at bedtime. 2. Atorvastatin 40 mg p.o. daily. 3. Levothyroxine 100 mcg p.o. daily. 4. Gabapentin 200 mg p.o. 3 times per day. 5. Ropinirole 4 mg p.o. at bedtime. 6. Iron sulfate 325 p.o. daily. 7. Lisinopril 20 mg p.o. daily. 8. Pregabalin 50 mg p.o. daily. 9. Rivaroxaban 10 mg p.o. at bedtime. 10. Azithromycin 250 p.o. daily. 11. Metoprolol 25 mg b.i.d. PRESENTING COMPLAINT: Shortness of breath, fever, sore throat. HISTORY OF PRESENTING COMPLAINT: Ms. Darden, a 59-year-old female with multiple comorbidities, presented to the emergency room because of shortness of breath, fever and sore throat. She was evaluated and was found on initial imaging studies to have pneumonia. Ms. Darden was admitted to the medical floor for further medical care. HOSPITAL COURSE: Ms. Darden was started on broad-spectrum IV antibiotics and IV fluids. All of her other comorbidities were all addressed during the hospital course. Multiple imaging studies continues to show improvement on her pneumonia and her vitals continue to be stable. Unfortunately, during the hospital cause at one point, Ms. Darden went into atrial fibrillation with rapid ventricular response. She was evaluated by Cardiology. She, however, remained in sinus rhythm for couple days afterwards until she got discharged. This morning she refers to be feeling a lot better. She remains afebrile. No more sore throat. Blood pressure is 153/79, pulse of 70, respirations 20, temperature 98.3 degrees. Ms. Darden is saturating 100%. We think she is stable for discharge. She will need to follow up with her primary care doctor as well as her senior quality manager. All the discharge instructions have been discussed with Ms. Darden. She voiced understanding. TIME ATTESTATION: Time spent for discharge is 35 minutes. cc: MD Pro Lara MD Dr. Powell
== END 2019-07-03 15:06 | disposition home health service (06) | DRG 194 ==
LOC: ED 17:17 → 3N 21:20 → SUATTDRO 21:20
PROVIDERS: ATTEND Internal Medicine